=== PATIENT | female | born 1930 | race Caucasian/White ===

== ENCOUNTER 2018-02-07 09:41 | Inpatient (IN) | payer MEDICARE ==
[2018-02-07 10:56] LABS: BASO % 0.3 % (0.0-1.0); EOS # 0.2 10^3/uL (0.0-0.50); EOS % 3.5 % (0.0-3.0); HEMATOCRIT 35.3 % (36.0-47.0); IMMATURE GRANULOCYTE % 0.4 % (0-3.0); LYMPH # 1.7 10^3/uL (1.5-4.5); LYMPH % 24.7 % (24.0-44.0); MEAN CORPUSCULAR HEMOGLOBIN 30.2 pg (27.0-33.0); MEAN CORPUSCULAR HGB CONC 31.2 g/dl (32.0-36.5); MONO # 0.4 10^3/uL (0.0-0.8); MONO % 6.3 % (0.0-5.0); NEUTROPHILS # 4.5 10^3/uL (1.8-7.7); NEUTROPHILS % 64.8 % (36.0-66.0); PLATELET COUNT, AUTOMATED 224 10^3/uL (150-450); RED BLOOD COUNT 3.64 10^6/uL (4.00-5.40); RED CELL DISTRIBUTION WIDTH 15.4 % (11.5-14.5); WHITE BLOOD COUNT 6.9 10^3/uL (4.0-10.0)
[2018-02-07 11:15] LABS: INR 1.13; PROTHROMBIN TIME 14.7 SECONDS (12.4-14.5)
[2018-02-07 11:16] LABS: PARTIAL THROMBOPLASTIN TIME 38.2 SECONDS (26.8-37.9)
[2018-02-07 11:20] LABS: ANION GAP 8 MEQ/L (8-16); BLOOD UREA NITROGEN 18 MG/DL (7-18); CALCIUM LEVEL 8.8 MG/DL (8.8-10.2); CARBON DIOXIDE LEVEL 25 MEQ/L (21-32); CHLORIDE LEVEL 107 MEQ/L (98-107); CK-MB VALUE MASS 1.9 NG/ML (<3.6); CPK CREATINE PHOSPHOKINASE 56 U/L (26-192); CREATININE FOR GFR 0.96 MG/DL (0.55-1.30); GLOMERULAR FILTRATION RATE 58.5 (>32); GLUCOSE, FASTING 192 MG/DL (70-100); MB/CK RELATIVE INDEX 3.39 (< OR =4); SODIUM LEVEL 140 MEQ/L (136-145); TROPONIN I < 0.02 NG/ML (< 0.10)
[2018-02-07] MEDS: ASPIRIN 325 MG TAB PO (11:44)
[2018-02-07] MEDS ORDERED: ONDANSETRON 4 MG TAB (S0181) PO (12:30)
[2018-02-07] MEDS ORDERED: GLUCOSE 4 GM CHEW TABLET PO (12:30)
[2018-02-07] MEDS ORDERED: ONDANSETRON 4MG/2ML VIAL (J2405) IV (12:30)
[2018-02-07] MEDS ORDERED: GLUCAGON FOR INJ 1 MG VIAL (J1610) SC (12:30)
[2018-02-07] MEDS ORDERED: DEXTROSE 50% 50 ML SYRINGE IV (12:30)
[2018-02-07] MEDS ORDERED: ACETAMINOPHEN TAB 650MG DOSE (2X325MG) PO (12:30)
[2018-02-07 13:07] LABS: ESTIMATED AVERAGE GLUCOSE 154 MG/DL (60-110)
[2018-02-07 16:36] LABS: CPK CREATINE PHOSPHOKINASE 59 U/L (26-192); TROPONIN I < 0.02 NG/ML (< 0.10)
[2018-02-07 16:40] LABS: CK-MB VALUE MASS 1.8 NG/ML (<3.6); MB/CK RELATIVE INDEX 3.05 (< OR =4)
[2018-02-07] MEDS: FENOFIBRATE 145 MG TAB (TRICOR) PO (17:19)
[2018-02-07] MEDS: ENOXAPARIN 40 MG/0.4 ML SYRINGE (J1650) SC (17:20)
[2018-02-07] MEDS: HumaLOG INSULIN (NovoLOG) PER UNIT SC ×2 (17:30→21:00)
[2018-02-07 17:36] LABS: BEDSIDE GLUCOSE 103 MG/DL (83-110)
[2018-02-07] MEDS ORDERED: SLF 3 ML SYR IV (18:45)
[2018-02-07] MEDS: ATORVASTATIN 20 MG TAB PO (21:46)
[2018-02-07] MEDS: OMEPRAZOLE 20 MG CAP PO (21:46)
[2018-02-07] MEDS: SLF 3 ML SYR IV (21:47)
[2018-02-07 21:50] LABS: BEDSIDE GLUCOSE 141 MG/DL (83-110)
[2018-02-08 00:50] LABS: CK-MB VALUE MASS 1.9 NG/ML (<3.6); CPK CREATINE PHOSPHOKINASE 56 U/L (26-192); MB/CK RELATIVE INDEX 3.39 (< OR =4); TROPONIN I < 0.02 NG/ML (< 0.10)
[2018-02-08 05:51] LABS: BASO % 0.2 % (0.0-1.0); EOS # 0.3 10^3/uL (0.0-0.50); EOS % 4.9 % (0.0-3.0); HEMATOCRIT 34.4 % (36.0-47.0); HEMOGLOBIN 10.8 g/dl (12.0-15.5); IMMATURE GRANULOCYTE % 0.6 % (0-3.0); LYMPH # 2.1 10^3/uL (1.5-4.5); LYMPH % 32.5 % (24.0-44.0); MEAN CORPUSCULAR HEMOGLOBIN 30.5 pg (27.0-33.0); MEAN CORPUSCULAR HGB CONC 31.4 g/dl (32.0-36.5); MEAN CORPUSCULAR VOLUME 97.2 fl (80.0-96.0); MONO # 0.4 10^3/uL (0.0-0.8); MONO % 6.5 % (0.0-5.0); NEUTROPHILS # 3.5 10^3/uL (1.8-7.7); NEUTROPHILS % 55.3 % (36.0-66.0); PLATELET COUNT, AUTOMATED 206 10^3/uL (150-450); RED BLOOD COUNT 3.54 10^6/uL (4.00-5.40); RED CELL DISTRIBUTION WIDTH 15.2 % (11.5-14.5); WHITE BLOOD COUNT 6.3 10^3/uL (4.0-10.0)
[2018-02-08 06:12] LABS: CPK CREATINE PHOSPHOKINASE 49 U/L (26-192); TROPONIN I < 0.02 NG/ML (< 0.10)
[2018-02-08 06:13] LABS: CK-MB VALUE MASS 1.7 NG/ML (<3.6); MB/CK RELATIVE INDEX 3.46 (< OR =4)
[2018-02-08 06:21] LABS: ANION GAP 9 MEQ/L (8-16); BLOOD UREA NITROGEN 16 MG/DL (7-18); CALCIUM LEVEL 8.9 MG/DL (8.8-10.2); CARBON DIOXIDE LEVEL 24 MEQ/L (21-32); CHLORIDE LEVEL 109 MEQ/L (98-107); CHOLESTEROL LEVEL 115 MG/DL (<200); CHOLESTEROL RISK RATIO 4.791 (<5); CREATININE FOR GFR 0.93 MG/DL (0.55-1.30); GLOMERULAR FILTRATION RATE > 60.0 (>32); GLUCOSE, FASTING 128 MG/DL (70-100); HDL CHOLESTEROL 24 MG/DL (>40); LDL CHOLESTEROL 42.8 MG/DL (<100); NON-HDL-C 91 MG/DL; POTASSIUM SERUM 3.9 MEQ/L (3.5-5.1); SODIUM LEVEL 142 MEQ/L (136-145); TRIGLYCERIDES LEVEL 241 MG/DL (<150)
[2018-02-08] MEDS: SLF 3 ML SYR IV ×3 (06:29→20:30)
[2018-02-08] MEDS: LEVOTHYROXINE 88MCG TABLET (0.088 MG) PO (06:29)
[2018-02-08 08:17] LABS: BEDSIDE GLUCOSE 126 MG/DL (83-110)
[2018-02-08] MEDS: HumaLOG INSULIN (NovoLOG) PER UNIT SC ×4 (08:28→20:25)
[2018-02-08] MEDS: LEVEMIR (INSULIN DETEMIR) 1 UNITS/0.01ML SC (09:35)
[2018-02-08] MEDS: ENOXAPARIN 40 MG/0.4 ML SYRINGE (J1650) SC (09:37)
[2018-02-08] MEDS: ASPIRIN 81 MG CHEW TABLET PO (09:37)
[2018-02-08] MEDS: LOSARTAN 25 MG TAB PO (09:38)
[2018-02-08] MEDS: FENOFIBRATE 145 MG TAB (TRICOR) PO (09:38)
[2018-02-08] MEDS: CETIRIZINE (ZyrTEC) 10 MG TAB PO (09:38)
[2018-02-08 12:38] LABS: BEDSIDE GLUCOSE 117 MG/DL (83-110)
[2018-02-08 17:09] LABS: BEDSIDE GLUCOSE 153 MG/DL (83-110)
[2018-02-08 20:20] LABS: BEDSIDE GLUCOSE 174 MG/DL (83-110)
[2018-02-08] MEDS: OMEPRAZOLE 20 MG CAP PO (20:29)
[2018-02-08] MEDS: ATORVASTATIN 20 MG TAB PO (20:29)
[2018-02-09 05:35] LABS: BASO % 0.3 % (0.0-1.0); EOS # 0.3 10^3/uL (0.0-0.50); HEMATOCRIT 35.9 % (36.0-47.0); HEMOGLOBIN 11.3 g/dl (12.0-15.5); IMMATURE GRANULOCYTE % 0.6 % (0-3.0); LYMPH % 31.4 % (24.0-44.0); MEAN CORPUSCULAR HEMOGLOBIN 30.7 pg (27.0-33.0); MEAN CORPUSCULAR HGB CONC 31.5 g/dl (32.0-36.5); MEAN CORPUSCULAR VOLUME 97.6 fl (80.0-96.0); MONO # 0.4 10^3/uL (0.0-0.8); MONO % 6.3 % (0.0-5.0); NEUTROPHILS # 3.6 10^3/uL (1.8-7.7); NEUTROPHILS % 56.4 % (36.0-66.0); PLATELET COUNT, AUTOMATED 207 10^3/uL (150-450); RED BLOOD COUNT 3.68 10^6/uL (4.00-5.40); RED CELL DISTRIBUTION WIDTH 15.2 % (11.5-14.5); WHITE BLOOD COUNT 6.4 10^3/uL (4.0-10.0)
[2018-02-09 05:49] LABS: ANION GAP 5 MEQ/L (8-16); BLOOD UREA NITROGEN 19 MG/DL (7-18); CALCIUM LEVEL 8.8 MG/DL (8.8-10.2); CARBON DIOXIDE LEVEL 26 MEQ/L (21-32); CHLORIDE LEVEL 109 MEQ/L (98-107); CREATININE FOR GFR 0.84 MG/DL (0.55-1.30); GLOMERULAR FILTRATION RATE > 60.0 (>32); GLUCOSE, FASTING 133 MG/DL (70-100); MAGNESIUM LEVEL 2.1 MG/DL (1.8-2.4); SODIUM LEVEL 140 MEQ/L (136-145)
[2018-02-09] MEDS: SLF 3 ML SYR IV (06:24)
[2018-02-09] MEDS: LEVOTHYROXINE 88MCG TABLET (0.088 MG) PO (06:24)
[2018-02-09 08:23] LABS: BEDSIDE GLUCOSE 155 MG/DL (83-110)
[2018-02-09] MEDS: ENOXAPARIN 40 MG/0.4 ML SYRINGE (J1650) SC (08:30)
[2018-02-09] MEDS: ASPIRIN 81 MG CHEW TABLET PO (08:31)
[2018-02-09] MEDS: HumaLOG INSULIN (NovoLOG) PER UNIT SC (08:31)
[2018-02-09] MEDS: LEVEMIR (INSULIN DETEMIR) 1 UNITS/0.01ML SC (08:31)
[2018-02-09] MEDS: FENOFIBRATE 145 MG TAB (TRICOR) PO (08:32)
[2018-02-09] MEDS: CETIRIZINE (ZyrTEC) 10 MG TAB PO (08:32)
[2018-02-09] MEDS: LOSARTAN 25 MG TAB PO (08:32)
== END 2018-02-09 11:00 | disposition home or self-care (01) | DRG 69 ==
LOC: M ED 09:41 → M ED INP 12:22 → M PCU 15:01
DX: G45.9 Transient cerebral ischemic attack, unspecified (principal); R47.01 Aphasia; I10 Essential (primary) hypertension; E11.9 Type 2 diabetes mellitus without complications; Z66 Do not resuscitate; E78.5 Hyperlipidemia, unspecified; E03.9 Hypothyroidism, unspecified; Z85.038 Personal history of other malignant neoplasm of large intestine; Z90.49 Acquired absence of other specified parts of digestive tract; Z98.49 Cataract extraction status, unspecified eye; Z91.018 Allergy to other foods; Z88.0 Allergy status to penicillin; Z79.4 Long term (current) use of insulin

== ENCOUNTER 2019-05-15 17:17 | Inpatient (IN) | payer MEDICARE ==
[~2019-05-15] VITALS: Ht 160 cm; Wt 72.5 kg
[~2019-05-15 17:17] MED LIST: ASPI-286 PO; ATOR1TAB21 PO; FENO160T10 PO; LEVO88TA3 PO; LOSA25TA14 PO; METF10004 PO; OMEP40CA2 PO; PRAV40TA2 PO; TOUJ1.2I SC; ZYRT10CA PO
[2019-05-15] MEDS ORDERED: ACET25TA12 PO (18:18)
--- NOTE | 2019-05-15 18:19 | REPVR ---
EXAM: CT Head Without Contrast EXAM DATE/TIME: 05/15/2019 5:46 PM CLINICAL HISTORY: 89 years old, female; Altered mental status/memory loss; Additional info: AMS TECHNIQUE: Imaging protocol: Computed tomography images of the head without contrast. Radiation optimization: All CT scans at this facility use at least one of these dose optimization techniques: automated exposure control; mA and/or kV adjustment per patient size (includes targeted exams where dose is matched to clinical indication); or iterative reconstruction. COMPARISON: CT Head without contrast 02/07/2018 10:52 AM FINDINGS: Brain: Global cerebral atrophy is consistent with patient's age. Decreased attenuation within the white matter tracts of both cerebral hemispheres is nonspecific but typically seen with small vessel disease/chronic white matter ischemic changes of aging. No intracranial hemorrhage or mass effect. No acute stroke. Ventricles: Unremarkable. No ventriculomegaly. Bones/joints: Unremarkable. No acute fracture. Sinuses: Visualized sinuses are unremarkable. No fluid levels. Mastoid air cells: Visualized mastoid air cells are well aerated. No mastoid effusion. Soft tissues: Unremarkable. IMPRESSION: No acute abnormality. Electronically signed by: Lito Hernández On 05/15/2019 18:19:01 PM
[2019-05-15 18:31] LABS: BASO % 0.4 % (0.0-1.0); EOS # 0.3 10^3/uL (0.0-0.50); EOS % 3.6 % (0.0-3.0); HEMATOCRIT 34.6 % (36.0-47.0); LYMPH # 1.9 10^3/uL (1.5-4.5); LYMPH % 22.7 % (24.0-44.0); MEAN CORPUSCULAR HEMOGLOBIN 31.9 pg (27.0-33.0); MEAN CORPUSCULAR HGB CONC 31.8 g/dl (32.0-36.5); MEAN CORPUSCULAR VOLUME 100.3 fl (80.0-96.0); MONO # 0.5 10^3/uL (0.0-0.8); MONO % 5.5 % (0.0-5.0); NEUTROPHILS # 5.6 10^3/uL (1.8-7.7); NEUTROPHILS % 67.1 % (36.0-66.0); PLATELET COUNT, AUTOMATED 242 10^3/uL (150-450); RED BLOOD COUNT 3.45 10^6/uL (4.00-5.40); WHITE BLOOD COUNT 8.3 10^3/uL (4.0-10.0)
[2019-05-15 18:57] LABS: ACETAMINOPHEN LEVEL < 2.0 UG/ML (10.0-30.0); ALBUMIN 4.1 GM/DL (3.2-5.2); ALT/SGPT 33 U/L (12-78); BILIRUBIN,DIRECT 0.2 MG/DL (0.0-0.2); BILIRUBIN,TOTAL 0.4 MG/DL (0.2-1.0); BLOOD UREA NITROGEN 13 MG/DL (7-18); CALCIUM LEVEL 9.1 MG/DL (8.8-10.2); CARBON DIOXIDE LEVEL 25 MEQ/L (21-32); CHLORIDE LEVEL 102 MEQ/L (98-107); CK-MB VALUE MASS 3.7 NG/ML (<3.6); CPK CREATINE PHOSPHOKINASE 75 U/L (26-192); ETHYL ALCOHOL (ETHANOL) < 0.003 % (0.000-0.010); GLOMERULAR FILTRATION RATE > 60.0 (>32); GLUCOSE, FASTING 139 MG/DL (70-100); MB/CK RELATIVE INDEX 4.93 (< OR =4); POTASSIUM SERUM 4.1 MEQ/L (3.5-5.1); SALICYLATE LEVEL < 1.7 MG/DL (5.0-30.0); SODIUM LEVEL 135 MEQ/L (136-145); TOTAL PROTEIN 7.6 GM/DL (6.4-8.2); TROPONIN I < 0.02 NG/ML (< 0.10)
[2019-05-15] MEDS ORDERED: ACETAMINOPHEN TAB 650MG DOSE (2X325MG) PO ONE (19:45)
[2019-05-15 20:00] LABS: AMPHETAMINES LEVEL URINE NEGATIVE (NEGATIVE); BARBITURATES URINE NEGATIVE (NEGATIVE); BENZODIAZEPINES URINE NEGATIVE (NEGATIVE); CANNABINOIDS URINE NEGATIVE (NEGATIVE); COCAINE METABOLITE URINE NEGATIVE (NEGATIVE); METHADONE URINE NEGATIVE (NEGATIVE); OPIATES URINE NEGATIVE (NEGATIVE); PHENCYCLIDINE URINE NEGATIVE (NEGATIVE)
--- NOTE | 2019-05-15 20:08 | ECGEPIP ---
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
[2019-05-15] MEDS ORDERED: ATOR40TA75 PO (20:29)
[2019-05-15] MEDS ORDERED: ALL10TAB28 PO (20:29)
[2019-05-15] MEDS ORDERED: ASPI81TA85 PO (20:29)
[2019-05-15] MEDS ORDERED: PATIENT COMMENTS (20:31)
[2019-05-15] MEDS ORDERED: LEVO100T5 PO (20:32)
[2019-05-15] MEDS ORDERED: NS 1,000 ML IV SCH (20:45)
--- NOTE | 2019-05-15 21:01 | HPEPDOC ---
[facility] Medical History & Physical Date of Admission May 15, 2019 Date of Service: May 15, 2019 Primary Care Physician: A Attending Physician: ALDO CARR MD History and Physical Time of service 9:20 PM CHIEF COMPLAINT: Abnormal speech HISTORY OF PRESENT ILLNESS: Miss by mouth as is a 89-year-old female who was brought to the ED by her daughter after having an episode of difficulty speaking, and confusion that occurred at around noon today while she is getting her ears checked. Per discussion with the ED attending, by the time the patient arrived and was evaluated, chart was around 6 PM her symptoms had completely resolved. Currently the patient denies having any acute complaints, and is asking when she can go to her room. About 3 weeks ago. The patient had a fall 3 weeks ago, was evaluated at a hospital in [place] and was sent home. Per chart review, the patient had similar symptoms in February 2018, was admitted for TIA, and had a complete neurological workup which was unremarkable. REVIEW OF SYSTEMS: 12 point review of systems negative except as listed in HPI PAST MEDICAL / SURGICAL HISTORY: Chronic Hypertension. TIA Diabetes mellitus type 2 Hypothyroidism Colon cancer status post resection partial colectomy, cataract surgery SOCIAL HISTORY: Currently lives in [facility] - Tobacco -Alcohol FAMILY HISTORY: Diabetes mellitus Coronary artery disease ALLERGIES: Please see below. HOME MEDICATIONS: Please see below. PHYSICAL EXAMINATION: VITAL SIGNS: Heart rate 103, blood pressure 172/68, pulse oximetry 93% on room air GENERAL APPEARANCE: Well-nourished, well-developed, no apparent distress HEENT:. Normocephalic, atraumatic, mucous members moist and pink. CARDIOVASCULAR: Regular rate and rhythm, no murmurs, rubs or gallops, radial pulses intact LUNGS: Good auscultation bilaterally on room air. ABDOMEN:. Bowel sounds hypoactive. Abdomen soft and nontender on palpation. MUSCULOSKELETAL: Range of motion intact 4 extremities, EXTREMITIES: No bilateral lower extremity edema NEUROLOGICAL: CN II to 12 intact, speech not dysarthric, strength 5 out of 5 in both upper and lower extremities PSYCHIATRIC: Alert and oriented person, place and time, able to understand and follow commands LABORATORY DATA: See below. CBC was unremarkable except for a hemoglobin of 11.0 with MCV of 103. Chemistry was unremarkable except for a sodium 135, and glucose of 139 IMAGING: CT of the head was negative for any acute abnormalities MICROBIOLOGY: Please see below. ASSESSMENT: Mrs. Parker is an 89-year-old female with a past medical history of chronic hypertension, hypothyroidism, TIAs, and type 2 diabetes will be admitted for evaluation of TIA like symptoms. PLAN: 1. Stroke/TIA -symptoms have resolved -last in patient admission in February of 2018 was for TIA w aphasia / the work up was unremarkable -TSH wnl -NIHHS Score to quantify stroke severity per ED Attending was 2 on admission is now 1 -ABCD2 Score for risk of CVA after TIA = 5 points = mod risk ( Hospital admission is recommended for all patients with TIAs who have an ABCD2 score of 3 or greater to expedite diagnostic testing and stroke subtyping; admission is also recommended for patients with a score of 0 to 2 if rapid outpatient evaluation cannot be performed.) Plan: admit to tele / f/u lipid panel for ACVD risk score, MRI brain, carotid US, Echo / NPO pending swallow evaluation / PT/OT consult / start ASA & statin after swallow eval / f/u w Neuro in the morning to determine if pt should get ASA + Plavix for 21 days followed by Plavix mono-therapy for 90 days to reduce the risk of subsequent stroke bc the score is >4 / if telemetry unremarkabley may consider Cardio referal for an event monitor to diagnose paroxysmal A.fib 2. Chronic Hypertension Plan: Continue home meds 3. Diabetes mellitus type 2 Plan: Follow-up Accu-Cheks, follow-up A1c, hold metformin, sliding scale insulin 4. Hypothyroidism Plan: Resume Synthroid in the morning DISPO: pending clinical course back to [facility] DVT Px w SCDs today, can switch to lovenox tommorow pending MRI results Vital Signs Vital Signs Date Time Temp Pulse Resp B/P (MAP) Pulse Ox O2 Delivery O2 Flow Rate FiO2 05/15/19 18:27 94 18 148/62 (90) 98 Room Air Laboratory Data Labs 24H Laboratory Tests 2 05/15/19 18:04: Immature Granulocyte % (Auto) 0.7, White Blood Count 8.3, Red Blood Count 3.45L, Hemoglobin 11.0L, Hematocrit 34.6L, Mean Corpuscular Volume 100.3H, Mean Corpuscular Hemoglobin 31.9, Mean Corpuscular Hemoglobin Concent 31.8L, Red Cell Distribution Width 14.1, Platelet Count 242, Neutrophils (%) (Auto) 67.1H, Lymphocytes (%) (Auto) 22.7L, Monocytes (%) (Auto) 5.5H, Eosinophils (%) (Auto) 3.6H, Basophils (%) (Auto) 0.4, Neutrophils # (Auto) 5.6, Lymphocytes # (Auto) 1.9, Monocytes # (Auto) 0.5, Eosinophils # (Auto) 0.3, Basophils # (Auto) 0.0, Nucleated Red Blood Cells % (auto) 0.0, Anion Gap 8, Glomerular Filtration Rate > 60.0, Calcium Level 9.1, Aspartate Amino Transf (AST/SGOT) 34, Alanine Aminotransferase (ALT/SGPT) 33, Alkaline Phosphatase 99, Total Bilirubin 0.4, Direct Bilirubin 0.2, Ammonia 29, Total Creatine Kinase 75, Creatine Kinase MB 3.7H, Creatine Kinase MB Relative Index 4.93H, Troponin I < 0.02, Total Protein 7.6, Albumin 4.1, Albumin/Globulin Ratio 1.17, Thyroid Stimulating Hormone (TSH) 2.600, Salicylates Level < 1.7L, Acetaminophen Level < 2.0L, Ethyl Alcohol Level < 0.003 05/15/19 18:15: Bedside Glucose (Misc Panel) 135H 05/15/19 19:20: Urine Amphetamines Screen NEGATIVE, Urine Benzodiazepines Screen NEGATIVE, Urine Opiates Screen NEGATIVE, Urine Methadone Screen NEGATIVE, Urine Barbiturates Screen NEGATIVE, Urine Phencyclidine Screen NEGATIVE, Urine Cocaine Metabolite Screen NEGATIVE, Urine Cannabinoids Screen NEGATIVE CBC/BMP Laboratory Tests 05/15/19 18:04 Red Blood Count 3.45 L, Mean Corpuscular Volume 100.3 H, Mean Corpuscular Hemoglobin 31.9, Mean Corpuscular Hemoglobin Concent 31.8 L, Red Cell Distribution Width 14.1, Neutrophils (%) (Auto) 67.1 H, Lymphocytes (%) (Auto) 22.7 L, Monocytes (%) (Auto) 5.5 H, Eosinophils (%) (Auto) 3.6 H, Basophils (%) (Auto) 0.4, Neutrophils # (Auto) 5.6, Lymphocytes # (Auto) 1.9, Monocytes # (Auto) 0.5, Eosinophils # (Auto) 0.3, Basophils # (Auto) 0.0 Home Medications Scheduled Acetaminophen/Diphenhydramine (Acetaminophen Pm Caplet) 1 Each Tablet, 1 TAB PO BID Aspirin (Aspir 81) 81 Mg Tablet.dr, 81 MG PO DAILY Atorvastatin Calcium (Atorvastatin Calcium) 40 Mg Tablet, 40 MG PO QPM LAST TAKEN EARLY AFTERNOON Cetirizine HCl (Cetirizine HCl) 10 Mg Tablet, 10 MG PO DAILY Fenofibrate (Fenofibrate) 160 Mg Tab, 160 MG PO DAILY 1500 Insulin Glargine,Hum.rec.anlog (Toujeo Solostar) 300 Unit/Ml Inj, 45 UNIT SC DAILY Levothyroxine Sodium (Levothyroxine Sodium) 100 Mcg Tablet, 100 MCG PO DAILY Losartan Potassium (Losartan Potassium) 25 Mg Tab, 25 MG PO DAILY Metformin HCl (Metformin HCl) 1,000 Mg Tab, 1,000 MG PO BID Omeprazole (Omeprazole) 40 Mg Cap, 40 MG PO QPM Miscellaneous Medications [Patient Comments] PATIENT GETS HER MEDS PREPACKED IN THE MAIL. SHE IS UNSURE TO WHAT SHE HAS TAKEN TODAY Allergies Coded Allergies: Penicillins (Verified Allergy, Severe, swelling, 05/15/19) Cantaloupe (Verified Allergy, Unknown, 02/07/18) A-FIB/CHADSVASC A-FIB History Current/History of A-Fib/PAF?: No Current PO Anticoag Therapy: No ALDO CARR MD May 15, 2019 21:01
[2019-05-15 22:27] LABS: CHOLESTEROL LEVEL 99 MG/DL (<200); CHOLESTEROL RISK RATIO 2.605 (<5); HDL CHOLESTEROL 38 MG/DL (>40); LDL CHOLESTEROL 29 MG/DL (<100); NON-HDL-C 61 MG/DL; TRIGLYCERIDES LEVEL 161 MG/DL (<150)
--- NOTE | 2019-05-15 22:28 | REPVR ---
EXAM: US Duplex Bilateral Extracranial Arteries EXAM DATE/TIME: 05/15/2019 9:15 PM CLINICAL HISTORY: 89 years old, female; Speech disturbance; Dysphasia; Additional info: TIA, date was changed to 05/15/2019 , nurse spoke w/ doctor TECHNIQUE: Imaging protocol: Real-time Duplex ultrasound scan of the Bilateral carotid and vertebral arteries combining yanez scale, color Doppler and spectral waveform analysis. COMPARISON: CT Head without contrast 05/15/2019 5:34 PM FINDINGS: Right common carotid artery: Right CCA PSV 90.1 cm/s. Right internal carotid artery: Calcified plaque within the right carotid bulb and proximal right ICA. Right ICA PSV 103.0 cm/s. Right ICA/CCA ratio: Right ICA/CCA ratio 1.14. Right external carotid artery: No stenosis in the origin. Right vertebral artery: Unremarkable. Antegrade flow Left common carotid artery: Left CCA PSV 84.0 cm/s. Left internal carotid artery: Calcified and soft plaque within the left carotid bulb and proximal left ICA. The extent of plaque within the left carotid bulb and proximal ICA appears to have increased significantly compared to the prior carotid ultrasound performed on 02/07/2018. Left ICA PSV 74.7 cm/s. Left ICA/CCA ratio: Left ICA/CCA ratio 0.89. Left external carotid artery: Stenosis at the origin is present. Left vertebral artery: Unremarkable. Antegrade flow. IMPRESSION: 1. Mild right ICA stenosis. 2. Although the left ICA stenosis is estimated to be less than 50% based on peak systolic velocity, there is extensive soft and calcified plaque at the origin of the left internal carotid artery. The amount of plaque has visibly increased since the prior examination. Further evaluation with CT angiography is suggested as clinically indicated. COMMENT: Carotid Stenosis Reference using SRU criteria: Mild: less than 50% stenosis. ICA PSV is less than 125 cm/second and plaque or intimal thickening is visible. Moderate: 50-69% stenosis. ICA PSV is 125 to 230 cm/second and plaque is visible. Severe: 70-94% stenosis. ICA PSV is more than 230 cm/second and visible plaque and lumen narrowing are seen. Near occlusion: 95-99% stenosis. ICA PSV is variable and significant plaque and luminal narrowing are seen. Occluded: 100% stenosis. No flow identified. Electronically signed by: Lito Hernández On 05/15/2019 22:28:32 PM
[2019-05-15] MEDS ORDERED: GLUCOSE 4 GM CHEW TABLET PO PRN (22:30)
[2019-05-16 01:00] VITALS: BP 165/88
[2019-05-16] MEDS ORDERED: IBUPROFEN 600 MG TAB PO ONE (01:45)
[2019-05-16 04:00] VITALS: BP 142/63
[2019-05-16] MEDS: LEVOTHYROXINE 100MCG TABLET (0.1MG) PO SCH (05:22)
[2019-05-16 05:45] LABS: HEMATOCRIT 33.1 % (36.0-47.0); HEMOGLOBIN 10.5 g/dl (12.0-15.5); MEAN CORPUSCULAR HEMOGLOBIN 31.2 pg (27.0-33.0); MEAN CORPUSCULAR HGB CONC 31.7 g/dl (32.0-36.5); MEAN CORPUSCULAR VOLUME 98.2 fl (80.0-96.0); PLATELET COUNT, AUTOMATED 218 10^3/uL (150-450); RED BLOOD COUNT 3.37 10^6/uL (4.00-5.40); WHITE BLOOD COUNT 8.4 10^3/uL (4.0-10.0)
[2019-05-16 06:02] LABS: HEMOGLOBIN A1c 7.7 %
[2019-05-16 06:12] LABS: BLOOD UREA NITROGEN 10 MG/DL (7-18); CALCIUM LEVEL 8.2 MG/DL (8.8-10.2); CARBON DIOXIDE LEVEL 24 MEQ/L (21-32); CHLORIDE LEVEL 105 MEQ/L (98-107); CREATININE FOR GFR 0.78 MG/DL (0.55-1.30); GLOMERULAR FILTRATION RATE > 60.0 (>32); GLUCOSE, FASTING 107 MG/DL (70-100); POTASSIUM SERUM 3.9 MEQ/L (3.5-5.1); SODIUM LEVEL 136 MEQ/L (136-145)
[2019-05-16] MEDS: HumaLOG INSULIN (NovoLOG) PER UNIT SC SCH ×3 (07:30→17:02)
--- NOTE | 2019-05-16 07:44 | REP ---
CHEST, TWO VIEWS: Two views of the chest are performed. Comparison 02/07/2018. There is mild elevation of the right hemidiaphragm with mild right base fibroatelectatic change. No acute infiltrate or pulmonary edema is seen. The heart is normal in size. There is calcification of the thoracic aorta. The mediastinal silhouette is unremarkable and unchanged. There are mild degenerative changes of the spine. IMPRESSION: No acute infiltrate. Electronically Signed by Ethan Valladares MD 05/17/2019 12:20 A
[2019-05-16 08:00] VITALS: BP 147/69
[2019-05-16] MEDS ORDERED: ISOVUE-370 76% 100ML VIAL (Q9967) As Ordered ONE (09:53)
[2019-05-16] MEDS: LOSARTAN 25 MG TAB PO SCH (10:26)
[2019-05-16] MEDS: CETIRIZINE (ZyrTEC) 10 MG TAB PO SCH (10:26)
[2019-05-16] MEDS: ASPIRIN 81 MG ENTERIC TAB PO SCH (10:26)
--- NOTE | 2019-05-16 11:22 | REP ---
CT ANGIO NECK: HISTORY: Carotid stenosis. CONTRAST: Isovue 370, 75 mL. Calcified atherosclerotic plaque is present at the origin of the right internal carotid artery. There is severe stenosis of 80% of the right internal carotid artery at its origin. The origin of the right external carotid artery is normal. Calcified atherosclerotic plaques are present at the origins of the left external and internal carotid arteries. There is severe stenosis of 70% of the left internal carotid artery at its origin. There is mild stenosis of 30% of the left external carotid artery at its origin. Calcified atherosclerotic plaques are present in the cavernous internal carotid arteries and supraclinoid right internal carotid artery. These produce at least mild stenosis. Calcified atherosclerotic plaque is present at the origin of the left subclavian artery. There is no significant stenosis. The vertebral arteries are equal in size and patent. IMPRESSION: 1. Severe stenosis of 80% of the right internal carotid artery at its origin. 2. Severe stenosis of 70% of the left internal carotid artery at its origin. Electronically Signed by Jp Flores MD 05/16/2019 12:47 P
[2019-05-16 12:00] VITALS: BP 145/71
--- NOTE | 2019-05-16 14:48 | CR.PDOC ---
General Date of Consultation: May 16, [address] Rosenbaum HPI: 89 year old F admitted with TIA symptoms 05/15/19, found to have carotid stenosis, vascular surgery is consulted. History is taken from the patient and 2 of her daughters. They report that she moved from [place] 2 months ago and has been living at [facility]. 04/24/2019 she was hospitalized in [place] with a fall and loss of consciousness. The patient states testing at that time was unremarkable and the patient was discharged. She has resolving ecchymosis on the left side of her face and head contusion of the left shoulder. According to the patient and her family yesterday at about 2 PM she had difficulty finding words, confusion, and dysarthria. She came to the emergency department for evaluation. Her daughter states this lasted for several hours and today she seems to be back to her baseline. The patient denies amaurosis, visual disturbances, weakness, numbness, or tingling in upper or lower extremities. Currently she is sitting on the side of the bed and having lunch. She states she has been more off balance recently and has been using a cane to assist her with ambulation. Denies any fevers, chills, Headache, Chest Pain, Shortness of breath, cough, palpitations, abdominal pain, N/V/D or changes in bowel or bladder habits. PAST MEDICAL / SURGICAL HISTORY: Hypertension Diabetes mellitus type 2 Dyslipidemia GERD Hypothyroidism Colon cancer status post resection partial colectomy, cataract surgery SOCIAL HISTORY: Denies Tobacco Denies Alcohol FAMILY HISTORY: Mother during childbirth Father related to Coronary artery disease ROS: As noted in HPI, otherwise 11pt ROS of systems reviewed and unremarkable. PE: GEN: 89 yo F, appears stated age. Well-nourished, well developed. No acute distress. Alert and oriented x 3. HEENT: Ecchymosis is noted around the left eye. This appears to be resolving. Sclera are nonicteric. Conjunctiva without injection. No facial asymmetry. Moist mucous membranes. CHEST: Regular rate and rhythm, +S1, +S2. LUNGS: Clear to auscultation bilaterally. No wheezes, rales, or rhonchi. ABD: Round, soft, non-tender, non-distended. EXT: No lower extremity edema appreciated. SKIN: [place], dry, warm. Good capillary refill. No rashes. NEURO: Alert and oriented x 3. Cranial nerves III-XII are intact. No focal deficits appreciated at this time. Patient is providing accurate history. Speech is clear. CT head No acute abnormality Carotid ultrasound COMMENT: Carotid Stenosis Reference using SRU criteria: Mild: less than 50% stenosis. ICA PSV is less than 125 cm/second and plaque or intimal thickening is visible. Moderate: 50-69% stenosis. ICA PSV is 125 to 230 cm/second and plaque is visible. Severe: 70-94% stenosis. ICA PSV is more than 230 cm/second and visible plaque and lumen narrowing are seen. Near occlusion: 95-99% stenosis. ICA PSV is variable and significant plaque and luminal narrowing are seen. Occluded: 100% stenosis. No flow identified. Electronically signed by: Lito Hernández On 05/15/2019 22:28:32 PM CTA neck 1. Severe stenosis of 80% of the right internal carotid artery at its origin. 2. Severe stenosis of 70% of the left internal carotid artery at its origin. Electronically Signed by Jp Flores MD 05/16/2019 12:47 P MRI brain. Pending A&P: 1. Carotid stenosis. The patient was noted to have confusion and dysarthria consistent with TIA symptoms on admission. The patient also reports an episode of fall and loss of consciousness in [place] 04/24/19. CTA neck indicates 80% right ICA stenosis, 70% left ICA stenosis. MRI brain pending. Continue aspirin 81 mg daily. Add Plavix 75 mg daily. Continue statin. The patient is reviewed by Dr. Rosenbaum. Tentative plan for right CEA Tuesday05/18/19 pending medical clearance. This is reviewed with the patient and her daughters. The procedure, risks, and benefits have been discussed. Dr. Rosenbaum will discuss further with the patient and her family. Vital Signs/I&O Vital Signs Date Time Temp Pulse Resp B/P (MAP) Pulse Ox O2 Delivery O2 Flow Rate FiO2 05/16/19 12:00 97.8 79 18 145/71 (95) 94 05/16/19 00:36 Room Air I&O- Last 24 Hours up to 6 AM 05/16/19 05:59 Intake Total 160 ml Balance 160 ml Laboratory Data Labs 24H Laboratory Tests 2 05/15/19 18:04: Immature Granulocyte % (Auto) 0.7, White Blood Count 8.3, Red Blood Count 3.45L, Hemoglobin 11.0L, Hematocrit 34.6L, Mean Corpuscular Volume 100.3H, Mean Corpuscular Hemoglobin 31.9, Mean Corpuscular Hemoglobin Concent 31.8L, Red Cell Distribution Width 14.1, Platelet Count 242, Neutrophils (%) (Auto) 67.1H, Lymphocytes (%) (Auto) 22.7L, Monocytes (%) (Auto) 5.5H, Eosinophils (%) (Auto) 3.6H, Basophils (%) (Auto) 0.4, Neutrophils # (Auto) 5.6, Lymphocytes # (Auto) 1.9, Monocytes # (Auto) 0.5, Eosinophils # (Auto) 0.3, Basophils # (Auto) 0.0, Nucleated Red Blood Cells % (auto) 0.0, Anion Gap 8, Glomerular Filtration Rate > 60.0, Calcium Level 9.1, Aspartate Amino Transf (AST/SGOT) 34, Alanine Aminotransferase (ALT/SGPT) 33, Alkaline Phosphatase 99, Total Bilirubin 0.4, Direct Bilirubin 0.2, Ammonia 29, Total Creatine Kinase 75, Creatine Kinase MB 3.7H, Creatine Kinase MB Relative Index 4.93H, Troponin I < 0.02, Total Protein 7.6, Albumin 4.1, Albumin/Globulin Ratio 1.17, Triglycerides Level 161H, Total Cholesterol 99, LDL Cholesterol 29, Non-HDL Cholesterol (LDL + VLDL) 61, Total HDL Cholesterol 38L, Cholesterol/HDL Ratio 2.605, Thyroid Stimulating Hormone (TSH) 2.600, Salicylates Level < 1.7L, Acetaminophen Level < 2.0L, Ethyl Alcohol Level < 0.003 05/15/19 18:15: Bedside Glucose (Misc Panel) 135H 05/15/19 19:20: Urine Color STRAW, Urine Appearance CLEAR, Urine pH 8.0, Urine Specific [place] 1.009, Urine Protein NEGATIVE, Urine Glucose (UA) NEGATIVE, Urine Ketones NEGATIVE, Urine Blood NEGATIVE, Urine Nitrite NEGATIVE, Urine Bilirubin NEGATIVE, Urine Urobilinogen 0.2, Urine Leukocyte Esterase 1+H, Urine WBC (Auto) 30H, Urine RBC (Auto) 1, Urine Hyaline Casts (Auto) 0, Urine Bacteria (Auto) NEGATIVE, Urine Squamous Epithelial Cells 0, Urine Transitional Epithelial Cells 1, Urine Sperm (Auto) , Urine Amphetamines Screen NEGATIVE, Urine Benzodiazepines Screen NEGATIVE, Urine Opiates Screen NEGATIVE, Urine Methadone Screen NEGATIVE, Urine Barbiturates Screen NEGATIVE, Urine Phencyclidine Screen NEGATIVE, Urine Cocaine Metabolite Screen NEGATIVE, Urine Cannabinoids Screen NEGATIVE 05/16/19 05:29: Nucleated Red Blood Cells % (auto) 0.0, Anion Gap 7L, Glomerular Filtration Rate > 60.0, Calcium Level 8.2L, Estimated Mean Plasma Glucose 174H, Hemoglobin A1c 7.7, Blood Urea Nitrogen 10, Creatinine 0.78, Sodium Level 136, Potassium Level 3.9, Chloride Level 105, Carbon Dioxide Level 24 05/16/19 11:59: Bedside Glucose (Misc Panel) 110 CBC/BMP Laboratory Tests 05/15/19 18:04 Red Blood Count 3.45 L, Mean Corpuscular Volume 100.3 H, Mean Corpuscular Hemoglobin 31.9, Mean Corpuscular Hemoglobin Concent 31.8 L, Red Cell Distribution Width 14.1, Neutrophils (%) (Auto) 67.1 H, Lymphocytes (%) (Auto) 22.7 L, Monocytes (%) (Auto) 5.5 H, Eosinophils (%) (Auto) 3.6 H, Basophils (%) (Auto) 0.4, Neutrophils # (Auto) 5.6, Lymphocytes # (Auto) 1.9, Monocytes # (Auto) 0.5, Eosinophils # (Auto) 0.3, Basophils # (Auto) 0.0 05/16/19 05:29 Red Blood Count 3.37 L, Mean Corpuscular Volume 98.2 H, Mean Corpuscular Hemoglobin 31.2, Mean Corpuscular Hemoglobin Concent 31.7 L, Red Cell Distribution Width 14.1, Calcium Level 8.2 L Microbiology Microbiology 05/15/19 Urine Culture, Received Pending Allergies Coded Allergies: Penicillins (Verified Allergy, Severe, swelling, 05/15/19) Cantaloupe (Verified Allergy, Unknown, 02/07/18) Home Medications Scheduled Acetaminophen/Diphenhydramine (Acetaminophen Pm Caplet) 1 Each Tablet, 1 TAB PO BID, (Reported) Aspirin (Aspir 81) 81 Mg Tablet.dr, 81 MG PO DAILY, (Reported) Atorvastatin Calcium (Atorvastatin Calcium) 40 Mg Tablet, 40 MG PO QPM, (Reported) LAST TAKEN EARLY AFTERNOON Cetirizine HCl (Cetirizine HCl) 10 Mg Tablet, 10 MG PO DAILY, (Reported) Fenofibrate (Fenofibrate) 160 Mg Tab, 160 MG PO DAILY, (Reported) 1500 Insulin Glargine,Hum.rec.anlog (Toujeo Solostar) 300 Unit/Ml Inj, 45 UNIT SC DAILY, (Reported) Levothyroxine Sodium (Levothyroxine Sodium) 100 Mcg Tablet, 100 MCG PO DAILY, (Reported) Losartan Potassium (Losartan Potassium) 25 Mg Tab, 25 MG PO DAILY, (Reported) Metformin HCl (Metformin HCl) 1,000 Mg Tab, 1,000 MG PO BID, (Reported) Omeprazole (Omeprazole) 40 Mg Cap, 40 MG PO QPM, (Reported) Miscellaneous Medications [Patient Comments] , (Reported) PATIENT GETS HER MEDS PREPACKED IN THE MAIL. SHE IS UNSURE TO WHAT SHE HAS TAKEN TODAY Jojo Guillory May 16, 2019 14:48
--- NOTE | 2019-05-16 15:03 | IPNPDOC ---
Subjective Date Seen The patient was seen on 05/16/19. Subjective Chief Complaint/HPI Patient seen and examined at the bedside. Denies any acute neurological complaints. States that she did not have any confusion or neurological issues yesterday. States that she was flustered after being told that her hearing was getting worse by the equipment application specialist. Otherwise, denies any other acute complaints. Objective Physical Examination General Exam: Positive: Alert, Cooperative, No Acute Distress Eye Exam: Positive: PERRLA, Conjunctiva & lids normal, EOMI; Negative: Sclera icteric ENT Exam: Positive: Atraumatic, Mucous membr. moist/pink Neck Exam: Negative: JVD Chest Exam: Positive: Clear to auscultation, Normal air movement Heart Exam: Positive: Rate Normal, Normal S1, Normal S2 Abdomen Exam: Positive: Soft; Negative: Tenderness Extremity Exam: Negative: Tenderness, Swelling Psych Exam: Positive: Oriented x 3 Assessment /Plan Plan/VTE VTE Prophylaxis Ordered?: Yes Plan Possible TIA vs Episode of Confusion Symptoms resolved prior to coming to the ER However, work up notable for 80% stenosis of ANASTASIA and 70% on LICA on CTA Neck MRI Brain pending Cont ASA, Statin for now Vascular surgery consulted-->Will tentatively schedule the patient for CEA on 05/18 Chronic Hypertension Continue home meds Diabetes mellitus type 2 Cont ISS Hypothyroidism Resume Synthroid DVT Prophylaxis Heparin SC VS, I&O, 24H, Fishbone Vital Signs/I&O Vital Signs Date Time Temp Pulse Resp B/P (MAP) Pulse Ox O2 Delivery O2 Flow Rate FiO2 05/16/19 12:00 97.8 79 18 145/71 (95) 94 05/16/19 00:36 Room Air I&O- Last 24 Hours up to 6 AM 05/16/19 06:00 Intake Total 240 ml Output Total 300 ml Balance -60 ml Laboratory Data 24H LABS Laboratory Tests 2 05/15/19 18:04: Immature Granulocyte % (Auto) 0.7, White Blood Count 8.3, Red Blood Count 3.45L, Hemoglobin 11.0L, Hematocrit 34.6L, Mean Corpuscular Volume 100.3H, Mean Corpuscular Hemoglobin 31.9, Mean Corpuscular Hemoglobin Concent 31.8L, Red Cell Distribution Width 14.1, Platelet Count 242, Neutrophils (%) (Auto) 67.1H, Lymphocytes (%) (Auto) 22.7L, Monocytes (%) (Auto) 5.5H, Eosinophils (%) (Auto) 3.6H, Basophils (%) (Auto) 0.4, Neutrophils # (Auto) 5.6, Lymphocytes # (Auto) 1.9, Monocytes # (Auto) 0.5, Eosinophils # (Auto) 0.3, Basophils # (Auto) 0.0, Nucleated Red Blood Cells % (auto) 0.0, Anion Gap 8, Glomerular Filtration Rate > 60.0, Calcium Level 9.1, Aspartate Amino Transf (AST/SGOT) 34, Alanine Aminotransferase (ALT/SGPT) 33, Alkaline Phosphatase 99, Total Bilirubin 0.4, Direct Bilirubin 0.2, Ammonia 29, Total Creatine Kinase 75, Creatine Kinase MB 3.7H, Creatine Kinase MB Relative Index 4.93H, Troponin I < 0.02, Total Protein 7.6, Albumin 4.1, Albumin/Globulin Ratio 1.17, Triglycerides Level 161H, Total Cholesterol 99, LDL Cholesterol 29, Non-HDL Cholesterol (LDL + VLDL) 61, Total HDL Cholesterol 38L, Cholesterol/HDL Ratio 2.605, Thyroid Stimulating Hormone (TSH) 2.600, Salicylates Level < 1.7L, Acetaminophen Level < 2.0L, Ethyl Alcohol Level < 0.003 05/15/19 18:15: Bedside Glucose (Misc Panel) 135H 05/15/19 19:20: Urine Color STRAW, Urine Appearance CLEAR, Urine pH 8.0, Urine Specific [place] 1.009, Urine Protein NEGATIVE, Urine Glucose (UA) NEGATIVE, Urine Ketones NEGATIVE, Urine Blood NEGATIVE, Urine Nitrite NEGATIVE, Urine Bilirubin NEGATIVE, Urine Urobilinogen 0.2, Urine Leukocyte Esterase 1+H, Urine WBC (Auto) 30H, Urine RBC (Auto) 1, Urine Hyaline Casts (Auto) 0, Urine Bacteria (Auto) NEGATIVE, Urine Squamous Epithelial Cells 0, Urine Transitional Epithelial Cells 1, Urine Sperm (Auto) , Urine Amphetamines Screen NEGATIVE, Urine Benzodiazepines Screen NEGATIVE, Urine Opiates Screen NEGATIVE, Urine Methadone Screen NEGATIVE, Urine Barbiturates Screen NEGATIVE, Urine Phencyclidine Screen NEGATIVE, Urine Cocaine Metabolite Screen NEGATIVE, Urine Cannabinoids Screen NEGATIVE 05/16/19 05:29: Nucleated Red Blood Cells % (auto) 0.0, Anion Gap 7L, Glomerular Filtration Rate > 60.0, Calcium Level 8.2L, Estimated Mean Plasma Glucose 174H, Hemoglobin A1c 7.7, Blood Urea Nitrogen 10, Creatinine 0.78, Sodium Level 136, Potassium Level 3.9, Chloride Level 105, Carbon Dioxide Level 24 05/16/19 11:59: Bedside Glucose (Misc Panel) 110 CBC/BMP Laboratory Tests 05/15/19 18:04 Red Blood Count 3.45 L, Mean Corpuscular Volume 100.3 H, Mean Corpuscular Hemoglobin 31.9, Mean Corpuscular Hemoglobin Concent 31.8 L, Red Cell Distribution Width 14.1, Neutrophils (%) (Auto) 67.1 H, Lymphocytes (%) (Auto) 22.7 L, Monocytes (%) (Auto) 5.5 H, Eosinophils (%) (Auto) 3.6 H, Basophils (%) (Auto) 0.4, Neutrophils # (Auto) 5.6, Lymphocytes # (Auto) 1.9, Monocytes # (Auto) 0.5, Eosinophils # (Auto) 0.3, Basophils # (Auto) 0.0 05/16/19 05:29 Red Blood Count 3.37 L, Mean Corpuscular Volume 98.2 H, Mean Corpuscular Hemoglobin 31.2, Mean Corpuscular Hemoglobin Concent 31.7 L, Red Cell Distribution Width 14.1, Calcium Level 8.2 L Microbiology Microbiology 05/15/19 Urine Culture, Received Pending JEANE ROMO MD May 16, 2019 15:03
[2019-05-16 16:00] VITALS: BP 149/68
[2019-05-16] MEDS ORDERED: SLF 3 ML SYR IV PRN (16:45)
[2019-05-16] MEDS ORDERED: PRAVASTATIN 20 MG TAB PO SCH (18:00)
[2019-05-16] MEDS: ACETAMINOPHEN TAB 650MG DOSE (2X325MG) PO PRN (18:01)
[2019-05-16 20:00] VITALS: BP 114/55
[2019-05-16] MEDS: SLF 3 ML SYR IV SCH (20:43)
[2019-05-16] MEDS: OMEPRAZOLE 20 MG CAP PO SCH (20:43)
[2019-05-16] MEDS: HEPARIN SOD (PORCINE) 5000 UNITS/ML VIAL SQ SCH (20:43)
[2019-05-16] MEDS: ATORVASTATIN 20 MG TAB PO SCH (20:43)
[2019-05-16] MEDS: LACTOBACILLUS ACIDOPHILUS CAP (BACID) PO SCH (20:43)
[2019-05-17 04:00] VITALS: BP 152/82
[2019-05-17] MEDS: LEVOTHYROXINE 100MCG TABLET (0.1MG) PO SCH (06:45)
[2019-05-17] MEDS: SLF 3 ML SYR IV SCH ×3 (06:47→20:47)
[2019-05-17] MEDS: HumaLOG INSULIN (NovoLOG) PER UNIT SC SCH ×4 (07:30→22:34)
--- NOTE | 2019-05-17 07:33 | REP ---
MR BRAIN WITHOUT CONTRAST: HISTORY: TIAs. COMPARISON: MR 02/07/2018. Areas of increased signal intensity on T2-weighted images are present in the periventricular and subcortical white matter. This represents small vessel ischemic disease. There is no intraparenchymal hemorrhage, infarct, mass, or midline shift. The ventricular system and cortical sulci are dilated consistent with mild volume loss. There is on extracerebral collection. The sinuses are clear. IMPRESSION: 1. Small vessel ischemic disease. 2. Mild volume loss. Electronically Signed by Jp Flores MD 05/17/2019 08:18 A
[2019-05-17 07:52] VITALS: BP 168/88
--- NOTE | 2019-05-17 09:49 | CR ---
DATE OF CONSULTATION: 05/16/2019 REFERRING PHYSICIAN: Dr. Ann Dill REASON FOR CONSULTATION: Slurred speech. HISTORY OF PRESENT ILLNESS: Trinity Parker is an 89-year-old woman who moved from [place] to [facility] this year. She lives at [facility]. She states that she had a hearing test done. When the person performing the hearing test was doing the test, she was unable to hear that individual. She felt shaken up. She developed confusion and trouble speaking. The patient stated that her symptoms occurred around noon time today. The patient arrived in the emergency department at around 6:00 p.m. and her symptoms were better. The patient herself states that she did not go through the ER. She states that she was transferred to her room upstairs. When she got to her room, her symptoms had improved. She fell asleep and woke up this morning and had no problems. The patient states that she was following with a doctor in [place] and had carotid artery stenosis, but it was not as severe at it was found to be at this hospital. The patient fell a few weeks ago when she was in [place]. She had a black left eye. CT scan of her head was unremarkable per history. She had off-and-on headaches at that time. She also feels occasional neck pain. She denies any back pain, seizures, dysphagia, dysarthria, diplopia, urinary incontinence, falls or loss of consciousness. DIAGNOSTIC STUDIES: MRI scan of brain showed small vessel ischemic disease of brain. Carotid ultrasound showed mild right capital internal carotid artery (ICA) and less than 50% left ICA stenosis. CT angiography of neck showed 80% right and 70% left internal carotid artery stenosis. The patient has been seen by vascular surgery and they are planning carotid endarterectomy for her this week. PAST MEDICAL HISTORY: History of transient ischemic attack (TIA) a few years ago when she had slurred speech for a few minutes, hypertension, type 2 diabetes, hypothyroidism, colon cancer status post resection and partial colectomy, cataract surgery. SOCIAL HISTORY: She lives at [facility]. She is a . She denies smoking, alcohol or illicit drugs. FAMILY HISTORY: Significant for diabetes and coronary artery disease. REVIEW OF SYSTEMS: All systems were reviewed and found to be noncontributory except as mentioned in history of present illness. ALLERGIES: PENICILLIN, C[place]AL[place]PE. HOME MEDICATIONS: Aspirin 81 mg by mouth daily, Lipitor 40 mg by mouth daily, cetirizine 10 mg by mouth daily fenofibrate 160 mg by mouth daily, levothyroxine 100 mcg by mouth daily, losartan 25 mg by mouth daily, metformin 1000 mg by mouth twice a day, omeprazole 40 mg by mouth daily, insulin Toujeo 45 units subcutaneous daily. PHYSICAL EXAMINATION: Temperature 98, pulse 90, respiratory rate 18, blood pressure 149/68, 90% saturation on room air. Heart: Regular rate and rhythm. Lungs: Clear to auscultation. Abdomen: Soft, nontender, nondistended. No pedal edema. No musculoskeletal abnormalities. No rash. The patient is awake, alert, oriented to place and person. Extraocular muscles are intact. No facial weakness. Tongue and uvula are midline. Visual johnson are full to confrontation. 5/5 strength in all four extremities. Normal sensation throughout bilaterally. Deep tendon flexes are 1+ in arms and knees and absent at ankles. Gait is normal. ASSESSMENT: 1. Transient ischemic attack. 2. Small vessel ischemic disease of brain. 3. 80% right and 70% left internal carotid artery stenosis based on CT angiography of neck. PLAN: 1. Aspirin 81 mg by mouth daily. 2. Lipitor 40 mg by mouth daily. 3. The patient has been seen by vascular surgery and they are planning carotid endarterectomy this week. 4. Plavix 75 mg by mouth daily. 5. Physical and occupational therapy. 6. She will likely need left carotid endarterectomy in the future as well. 7. Follow with our office in 2-4 weeks after hospital discharge.
[2019-05-17] MEDS: CETIRIZINE (ZyrTEC) 10 MG TAB PO SCH (10:12)
[2019-05-17] MEDS: CLOPIDOGREL 75 MG TAB PO SCH (10:12)
[2019-05-17] MEDS: ASPIRIN 81 MG ENTERIC TAB PO SCH (10:12)
[2019-05-17] MEDS: LOSARTAN 25 MG TAB PO SCH (10:12)
[2019-05-17] MEDS: HEPARIN SOD (PORCINE) 5000 UNITS/ML VIAL SQ SCH ×2 (10:13→20:47)
--- NOTE | 2019-05-17 10:52 | IPNPDOC ---
Date Seen The patient was seen on 05/17/19. Progress Note Vascular surgery. Dr. Rosenbaum HPI: 89 year old F admitted with TIA symptoms 05/15/19, found to have carotid stenosis, vascular surgery is consulted. History is taken from the patient and 2 of her daughters. They report that she moved from [place] 2 months ago and has been living at [facility]. 04/24/2019 she was hospitalized in [place] with a fall and loss of consciousness. The patient states testing at that time was unremarkable and the patient was discharged. She has resolving ecchymosis on the left side of her face and head contusion of the left shoulder. The pt reports no concerns today. States speeh is normal and denies confusion. Denies any fevers, chills, Headache, Chest Pain, Shortness of breath, cough, palpitations, abdominal pain, N/V/D or changes in bowel or bladder habits. PAST MEDICAL / SURGICAL HISTORY: Hypertension Diabetes mellitus type 2 Dyslipidemia GERD Hypothyroidism Colon cancer status post resection partial colectomy, cataract surgery PE: GEN: 89 yo F, appears stated age. Well-nourished, well developed. No acute distress. Alert and oriented x 3. HEENT: Ecchymosis is noted around the left eye. This appears to be resolving. Sclera are nonicteric. Conjunctiva without injection. No facial asymmetry. Moist mucous membranes. CHEST: Regular rate and rhythm, +S1, +S2. LUNGS: Clear to auscultation bilaterally. No wheezes, rales, or rhonchi. ABD: Round, soft, non-tender, non-distended. EXT: No lower extremity edema appreciated. SKIN: [place], dry, warm. Good capillary refill. No rashes. NEURO: Alert and oriented x 3. Cranial nerves III-XII are intact. No focal deficits appreciated at this time. Patient is providing accurate history. Speech is clear. CT head No acute abnormality Carotid ultrasound COMMENT: Carotid Stenosis Reference using SRU criteria: Mild: less than 50% stenosis. ICA PSV is less than 125 cm/second and plaque or intimal thickening is visible. Moderate: 50-69% stenosis. ICA PSV is 125 to 230 cm/second and plaque is visible. Severe: 70-94% stenosis. ICA PSV is more than 230 cm/second and visible plaque and lumen narrowing are seen. Near occlusion: 95-99% stenosis. ICA PSV is variable and significant plaque and luminal narrowing are seen. Occluded: 100% stenosis. No flow identified. Electronically signed by: Lito Hernández On 05/15/2019 22:28:32 PM CTA neck 1. Severe stenosis of 80% of the right internal carotid artery at its origin. 2. Severe stenosis of 70% of the left internal carotid artery at its origin. Electronically Signed by Jp Flores MD 05/16/2019 12:47 P MRI brain. Pending A&P: 1. Carotid stenosis. The patient was noted to have confusion and dysarthria consistent with TIA symptoms on admission. The patient also reports an episode of fall and loss of consciousness in [place] 04/24/19. CTA neck indicates 80% right ICA stenosis, 70% left ICA stenosis. MRI brain small vessel disease and volume loss. Continue aspirin 81 mg daily. Plavix 75 mg daily. Continue statin. The patient is reviewed by Dr. Rosenbaum. Tentative plan for right CEA Tuesday05/18/19 pending medical clearance. This was reviewed with the patient and her daughters 05/16/19. The procedure, risks, and benefits have been discussed. Dr. Rosenbaum will discuss further with the patient and her family. VS, I&O, 24H, Fishbone Vital Signs/I&O Vital Signs Date Time Temp Pulse Resp B/P (MAP) Pulse Ox O2 Delivery O2 Flow Rate FiO2 05/17/19 10:12 168/88 05/17/19 07:52 97.1 88 20 98 05/16/19 00:36 Room Air I&O- Last 24 Hours up to 6 AM 05/17/19 06:00 Intake Total 1180 ml Output Total 1100 ml Balance 80 ml Laboratory Data 24H LABS Laboratory Tests 2 05/16/19 11:59: Bedside Glucose (Misc Panel) 110 05/16/19 16:45: Bedside Glucose (Misc Panel) 145H 05/16/19 21:44: Bedside Glucose (Misc Panel) 138H 05/17/19 06:51: Bedside Glucose (Misc Panel) 148H Microbiology Microbiology 05/15/19 Urine Culture - Final, Complete Jojo Guillory May 17, 2019 10:52
[2019-05-17 12:00] VITALS: BP 152/94
--- NOTE | 2019-05-17 13:04 | IPNPDOC ---
Subjective Date Seen The patient was seen on 05/17/19. Subjective Chief Complaint/HPI Patient seen and examined at the bedside. No acute overnight events noted. Objective Physical Examination General Exam: Positive: Alert, Cooperative, No Acute Distress Eye Exam: Positive: PERRLA, Conjunctiva & lids normal, EOMI; Negative: Sclera icteric ENT Exam: Positive: Atraumatic, Mucous membr. moist/pink Neck Exam: Negative: JVD Chest Exam: Positive: Clear to auscultation, Normal air movement Heart Exam: Positive: Rate Normal, Normal S1, Normal S2 Abdomen Exam: Positive: Soft; Negative: Tenderness Extremity Exam: Negative: Tenderness, Swelling Neuro Exam: Positive: Normal Speech, Strength at 5/5 X4 ext, Sensation Intact, Cranial Nerves 3-12 NL Psych Exam: Positive: Mental status NL, Mood NL, Oriented x 3 Assessment /Plan Plan/VTE VTE Prophylaxis Ordered?: Yes Plan Transient Ischemic Attack Symptoms resolved prior to coming to the ER However, work up notable for 80% stenosis of ANASTASIA and 70% on LICA on CTA Neck MRI Brain notable for small vessel ischemic disease Cont ASA, Plavix, Statin for now Vascular surgery consulted-->Will tentatively schedule the patient for right CEA on 05/18, and will need Left CEA in the future Neuro input appreciated At this time, the patient does not need further invasive work up, and is medically optimized for this intermediate risk procedure Chronic Hypertension Continue home meds Diabetes mellitus type 2 Cont ISS Hypothyroidism Resume Synthroid DVT Prophylaxis Heparin SC VS, I&O, 24H, Fishbone Vital Signs/I&O Vital Signs Date Time Temp Pulse Resp B/P (MAP) Pulse Ox O2 Delivery O2 Flow Rate FiO2 05/17/19 10:12 168/88 05/17/19 07:52 97.1 88 20 98 05/16/19 00:36 Room Air I&O- Last 24 Hours up to 6 AM 05/17/19 06:00 Intake Total 1180 ml Output Total 1100 ml Balance 80 ml Laboratory Data 24H LABS Laboratory Tests 2 05/16/19 16:45: Bedside Glucose (Misc Panel) 145H 05/16/19 21:44: Bedside Glucose (Misc Panel) 138H 05/17/19 06:51: Bedside Glucose (Misc Panel) 148H 05/17/19 11:33: Bedside Glucose (Misc Panel) 118H Microbiology Microbiology 05/15/19 Urine Culture - Final, Complete JEANE ROMO MD May 17, 2019 13:04
[2019-05-17 15:03] VITALS: BP 132/80
[2019-05-17] MEDS: ATORVASTATIN 20 MG TAB PO SCH (20:46)
[2019-05-17] MEDS: LACTOBACILLUS ACIDOPHILUS CAP (BACID) PO SCH (20:46)
[2019-05-17] MEDS: OMEPRAZOLE 20 MG CAP PO SCH (20:47)
[2019-05-17 22:00] VITALS: BP 150/71
[2019-05-18] MEDS: SLF 3 ML SYR IV SCH ×3 (05:34→22:35)
[2019-05-18] MEDS: LEVOTHYROXINE 100MCG TABLET (0.1MG) PO SCH (05:34)
[2019-05-18 06:00] VITALS: BP 135/63
[2019-05-18] MEDS: CETIRIZINE (ZyrTEC) 10 MG TAB PO SCH (09:01)
[2019-05-18] MEDS: ASPIRIN 81 MG ENTERIC TAB PO SCH (09:01)
[2019-05-18] MEDS: CLOPIDOGREL 75 MG TAB PO SCH (09:01)
[2019-05-18] MEDS: HEPARIN SOD (PORCINE) 5000 UNITS/ML VIAL SQ SCH ×2 (09:01→22:35)
[2019-05-18] MEDS: HumaLOG INSULIN (NovoLOG) PER UNIT SC SCH ×4 (09:02→21:00)
[2019-05-18] MEDS: LOSARTAN 25 MG TAB PO SCH (09:10)
--- NOTE | 2019-05-18 10:14 | IPNPDOC ---
Date Seen The patient was seen on 05/18/19. Progress Note Vascular surgery. Dr. Rosenbaum HPI: 89 year old F admitted with TIA symptoms 05/15/19, found to have carotid stenosis, vascular surgery is consulted. History is taken from the patient and 2 of her daughters. They report that she moved from [place] 2 months ago and has been living at [facility]. 04/24/2019 she was hospitalized in [place] with a fall and loss of consciousness. The patient states testing at that time was unremarkable and the patient was discharged. She has resolving ecchymosis on the left side of her face and head contusion of the left shoulder. The pt reports no concerns today. States speech is normal and denies confusion. Pt is sitting on side of bed. Denies any fevers, chills, Headache, Chest Pain, Shortness of breath, cough, palpitations, abdominal pain, N/V/D or changes in bowel or bladder habits. PAST MEDICAL / SURGICAL HISTORY: Hypertension Diabetes mellitus type 2 Dyslipidemia GERD Hypothyroidism Colon cancer status post resection partial colectomy, cataract surgery PE: GEN: 89 yo F, appears stated age. Alert and oriented x 3. HEENT: Ecchymosis is noted around the left eye. This appears to be resolving. No facial asymmetry. Moist mucous membranes. CHEST: Regular rate and rhythm, +S1, +S2. LUNGS: Clear to auscultation bilaterally. No wheezes, rales, or rhonchi. ABD: Round, soft, non-tender, non-distended. EXT: No lower extremity edema appreciated. SKIN: [place], dry, warm. Good capillary refill. No rashes. NEURO: Alert and oriented x 3. Cranial nerves III-XII are intact. No focal deficits appreciated at this time. Patient is providing accurate history. Speech is clear. CT head No acute abnormality Carotid ultrasound COMMENT: Carotid Stenosis Reference using SRU criteria: Mild: less than 50% stenosis. ICA PSV is less than 125 cm/second and plaque or intimal thickening is visible. Moderate: 50-69% stenosis. ICA PSV is 125 to 230 cm/second and plaque is visible. Severe: 70-94% stenosis. ICA PSV is more than 230 cm/second and visible plaque and lumen narrowing are seen. Near occlusion: 95-99% stenosis. ICA PSV is variable and significant plaque and luminal narrowing are seen. Occluded: 100% stenosis. No flow identified. Electronically signed by: Lito Hernández On 05/15/2019 22:28:32 PM CTA neck 1. Severe stenosis of 80% of the right internal carotid artery at its origin. 2. Severe stenosis of 70% of the left internal carotid artery at its origin. Electronically Signed by Jp Flores MD 05/16/2019 12:47 P MRI brain. Pending A&P: 1. Carotid stenosis. The patient was noted to have confusion and dysarthria consistent with TIA symptoms on admission. The patient also reports an episode of fall and loss of consciousness in [place] 04/24/19. CTA neck indicates 80% right ICA stenosis, 70% left ICA stenosis. MRI brain small vessel disease and volume loss. Continue aspirin 81 mg daily. Plavix 75 mg daily. Continue statin. The patient is reviewed by Dr. Rosenbaum. He has discussed surgical procedure with the pt this AM. The pt wishes to proceed. Plan for right CEA later today. The pt is felt to be medically optimized for the procedure. This has been reviewed with the patient and her daughters 05/16/19. The procedure, risks, and benefits have been discussed. Dr. Rosenbaum will discuss further with her family prior to surgery. VS, I&O, 24H, Fishbone Vital Signs/I&O Vital Signs Date Time Temp Pulse Resp B/P (MAP) Pulse Ox O2 Delivery O2 Flow Rate FiO2 05/18/19 09:10 138/72 05/18/19 06:00 96.0 86 18 94 05/16/19 00:36 Room Air I&O- Last 24 Hours up to 6 AM 05/18/19 06:00 Intake Total 1200 ml Output Total 150 ml Balance 1050 ml Laboratory Data 24H LABS Laboratory Tests 2 05/17/19 11:33: Bedside Glucose (Misc Panel) 118H 05/17/19 17:07: Bedside Glucose (Misc Panel) 207H 05/17/19 21:39: Bedside Glucose (Misc Panel) 343H 05/18/19 06:58: Bedside Glucose (Misc Panel) 165H Microbiology Microbiology 05/15/19 Urine Culture - Final, Complete Jojo Guillory May 18, 2019 10:14
--- NOTE | 2019-05-18 13:59 | IPNPDOC ---
Subjective Date Seen The patient was seen on 05/18/19. Subjective Chief Complaint/HPI Patient seen and examined at the bedside. Denies any acute overnight complaints. She is scheduled for a right carotid endarterectomy today. Objective Physical Examination General Exam: Positive: Alert, Cooperative, No Acute Distress Eye Exam: Positive: PERRLA, Conjunctiva & lids normal, EOMI; Negative: Sclera icteric ENT Exam: Positive: Atraumatic, Mucous membr. moist/pink Neck Exam: Negative: JVD Chest Exam: Positive: Clear to auscultation, Normal air movement Heart Exam: Positive: Rate Normal, Normal S1, Normal S2 Abdomen Exam: Positive: Soft; Negative: Tenderness Extremity Exam: Negative: Tenderness, Swelling Neuro Exam: Positive: Normal Speech, Strength at 5/5 X4 ext, Sensation Intact, Cranial Nerves 3-12 NL Psych Exam: Positive: Mental status NL, Mood NL, Oriented x 3 Assessment /Plan Plan/VTE VTE Prophylaxis Ordered?: Yes Plan Transient Ischemic Attack Symptoms resolved prior to coming to the ER However, work up notable for 80% stenosis of ANASTASIA and 70% on LICA on CTA Neck MRI Brain notable for small vessel ischemic disease Cont ASA, Plavix, Statin Vascular surgery consulted-->Will tentatively schedule the patient for right CEA today, and will need Left CEA in the future Neuro input appreciated We will follow up postoperatively Chronic Hypertension Continue home meds Diabetes mellitus type 2 Cont ISS Hypothyroidism Resume Synthroid DVT Prophylaxis Heparin SC VS, I&O, 24H, Fishbone Vital Signs/I&O Vital Signs Date Time Temp Pulse Resp B/P (MAP) Pulse Ox O2 Delivery O2 Flow Rate FiO2 05/18/19 09:10 138/72 05/18/19 06:00 96.0 86 18 94 05/16/19 00:36 Room Air I&O- Last 24 Hours up to 6 AM 05/18/19 05:59 Intake Total 1200 ml Output Total 150 ml Balance 1050 ml Laboratory Data 24H LABS Laboratory Tests 2 05/17/19 17:07: Bedside Glucose (Misc Panel) 207H 05/17/19 21:39: Bedside Glucose (Misc Panel) 343H 05/18/19 06:58: Bedside Glucose (Misc Panel) 165H 05/18/19 11:39: Bedside Glucose (Misc Panel) 147H Microbiology Microbiology 05/15/19 Urine Culture - Final, Complete JEANE ROMO MD May 18, 2019 13:59
[2019-05-18 14:00] VITALS: BP 132/76
[2019-05-18] MEDS ORDERED: THROMBIN SOLN 20,000 UNITS KIT As Ordered ONE (17:33)
[2019-05-18] MEDS ORDERED: LIDOCAINE 1% SDV INJ 30 ML VIAL As Ordered ONE (17:33)
[2019-05-18] MEDS ORDERED: BUPIVACAINE HCL 0.5% 30 ML VIAL As Ordered ONE (17:34)
[2019-05-18] MEDS ORDERED: LIDOCAINE 2% MDV 20 ML VIAL As Ordered ONE (17:34)
[2019-05-18] MEDS ORDERED: HEPARIN SOD (PORCINE) 5000 UNITS/ML VIAL As Ordered ONE ×2 (17:34→19:45)
[2019-05-18] MEDS ORDERED: PROPOFOL 200 MG/20 ML VIAL As Ordered ONE ×2 (18:08→20:30)
[2019-05-18] MEDS ORDERED: ONDANSETRON 4MG/2ML VIAL (J2405) As Ordered ONE (18:08)
[2019-05-18] MEDS ORDERED: LIDOCAINE 2% INJ 100 MG/5 ML SDV (FOR ANES.) As Ordered ONE (18:08)
[2019-05-18] MEDS ORDERED: MIDAZOLAM INJ 2 MG/2 ML VIAL (J2250) As Ordered ONE (18:09)
[2019-05-18] MEDS ORDERED: fentaNYL 100 MCG/2 ML INJECTION (J3010) As Ordered ONE (18:09)
[2019-05-18] MEDS ORDERED: ceFAZolin 2 GM/D5W 50 ML IV BAG (J0690 PER 500MG) As Ordered ONE (19:08)
[2019-05-18] MEDS ORDERED: CLINDAMYCIN 600 MG/50 ML PREMIX BAG As Ordered ONE (19:10)
[2019-05-18] MEDS ORDERED: LABETALOL HCL 100 MG/20 ML VIAL As Ordered ONE (19:54)
[2019-05-18] MEDS ORDERED: NITROGLYCERIN IN D5W 25MG/250ML (100MCG/ML) As Ordered ONE (20:00)
[2019-05-18] MEDS ORDERED: LR 1,000 ML IV SCH (21:45)
[2019-05-18] MEDS ORDERED: fentaNYL 100 MCG/2 ML INJECTION (J3010) IV PRN (21:45)
[2019-05-18] MEDS ORDERED: ONDANSETRON 4MG/2ML VIAL (J2405) IV PRN (21:45)
[2019-05-18 22:15] VITALS: BP_SYST 154; BP_SYST 162; BP_DIAS 67; BP_DIAS 69
[2019-05-18 22:26] VITALS: BP_SYST 146; BP_SYST 158; BP_DIAS 66; BP_DIAS 69
--- NOTE | 2019-05-18 22:32 | ECHO ---
DATE OF PROCEDURE: 05/16/2019 DATE OF : 1930 AGE: 89 REFERRING PROVIDER: Dr. Ann Dill PATIENT LOCATION: Room 3213 REASON FOR THE STUDY: Transient ischemic attack (TIA). 2D MEASUREMENTS: IVS: 1.1 cm LV: 4.3 cm LVPW: 1.1 cm LA: 2.7 cm Aorta: 3.0 cm IVC: 2.0 cm DOPPLER MEASUREMENTS: Peak velocity across the aortic valve: 1.5 m/s Peak velocity across the LVOT: 0.72 m/s Mitral E: 0.77, Mitral A: 1.1 with a ratio of 0.7 Maximum tricuspid valve velocity: 2.0 m/s 2D COMMENTS: 1. Normal left ventricular size, wall thickness, and normal global left ventricular systolic function. The estimated left ventricular systolic ejection fraction is 60-65%. 2. Normal left atrium. Normal right atrium and right ventricle. 3. The atrial septum appeared to be normal without evidence of defect or shunt. 4. Normal aortic root. 5. Trace to small pericardial effusion noted, no evidence of cardiac tamponade. 6. Mildly calcified aortic valve with normal leaflet excursion. Normal mitral valve, tricuspid valve, and pulmonic valve. The proximal pulmonary artery branches were not well visualized. 7. The inferior vena cava is borderline enlarged. DOPPLER: It detects trace aortic regurgitation, trace tricuspid regurgitation. The calculated pulmonary artery systolic pressure was normal, less than 30 mmHg. Abnormal relaxation pattern was noted across the mitral valve leaflets as well as the mitral valve annulus consistent with features of grade 1 left ventricular diastolic dysfunction. IMPRESSION: 1. Normal global left ventricular systolic function. There are some features of left ventricular diastolic dysfunction manifested by abnormal relaxation. 2. Aortic valve sclerosis with trace aortic regurgitation but no aortic stenosis. 3. Trace tricuspid regurgitation. 4. Trace to small pericardial effusion, no evidence of cardiac tamponade. 5. Prior echocardiogram was on 02/08/2018, a small pericardial effusion was noted. KEMAR
[2019-05-18] MEDS: OMEPRAZOLE 20 MG CAP PO SCH (22:34)
[2019-05-18] MEDS: ATORVASTATIN 20 MG TAB PO SCH (22:34)
[2019-05-18] MEDS: LACTOBACILLUS ACIDOPHILUS CAP (BACID) PO SCH (22:34)
[2019-05-18 22:41] VITALS: BP_SYST 145; BP_SYST 159; BP_DIAS 66; BP_DIAS 71
[2019-05-18 23:02] VITALS: BP_SYST 134; BP_SYST 138; BP_DIAS 62; BP_DIAS 64
[2019-05-19] VITALS (19 sets, daily range): BP systolic 93–193; BP diastolic 45–181
[2019-05-19] MEDS ORDERED: MIDAZOLAM INJ 2 MG/2 ML VIAL (J2250) As Ordered ONE ×2 (01:01→01:02)
[2019-05-19] MEDS ORDERED: ETOMIDATE INJ 20MG/10ML VIAL As Ordered ONE (01:03)
[2019-05-19] MEDS ORDERED: SUCCINYLCHOLINE INJ 200 MG/10 ML VIAL (J0330) As Ordered ONE (01:04)
[2019-05-19] MEDS: ACETAMINOPHEN TAB 650MG DOSE (2X325MG) PO PRN ×3 (01:10→17:40)
[2019-05-19 05:07] LABS: HEMATOCRIT 30.2 % (36.0-47.0); HEMOGLOBIN 9.7 g/dl (12.0-15.5); MEAN CORPUSCULAR HEMOGLOBIN 32.9 pg (27.0-33.0); MEAN CORPUSCULAR HGB CONC 32.1 g/dl (32.0-36.5); MEAN CORPUSCULAR VOLUME 102.4 fl (80.0-96.0); PLATELET COUNT, AUTOMATED 191 10^3/uL (150-450); RED BLOOD COUNT 2.95 10^6/uL (4.00-5.40); WHITE BLOOD COUNT 10.7 10^3/uL (4.0-10.0)
[2019-05-19 05:23] LABS: INR 1.14; PROTHROMBIN TIME 14.3 SECONDS (11.8-14.0)
[2019-05-19] MEDS: LEVOTHYROXINE 100MCG TABLET (0.1MG) PO SCH (05:28)
[2019-05-19] MEDS: SLF 3 ML SYR IV SCH ×3 (05:28→21:33)
[2019-05-19 05:35] LABS: BLOOD UREA NITROGEN 14 MG/DL (7-18); CALCIUM LEVEL 8.7 MG/DL (8.8-10.2); CARBON DIOXIDE LEVEL 24 MEQ/L (21-32); CHLORIDE LEVEL 103 MEQ/L (98-107); CREATININE FOR GFR 0.91 MG/DL (0.55-1.30); GLOMERULAR FILTRATION RATE > 60.0 (>32); GLUCOSE, FASTING 196 MG/DL (70-100); POTASSIUM SERUM 4.4 MEQ/L (3.5-5.1); SODIUM LEVEL 136 MEQ/L (136-145)
[2019-05-19] MEDS: CLOPIDOGREL 75 MG TAB PO SCH (08:53)
[2019-05-19] MEDS: HumaLOG INSULIN (NovoLOG) PER UNIT SC SCH ×4 (08:53→21:00)
[2019-05-19] MEDS: LOSARTAN 25 MG TAB PO SCH (08:54)
[2019-05-19] MEDS: CETIRIZINE (ZyrTEC) 10 MG TAB PO SCH (08:54)
[2019-05-19] MEDS: ASPIRIN 81 MG ENTERIC TAB PO SCH (08:54)
[2019-05-19] MEDS: HEPARIN SOD (PORCINE) 5000 UNITS/ML VIAL SQ SCH ×2 (08:57→21:32)
--- NOTE | 2019-05-19 12:50 | IPNPDOC ---
Subjective Date Seen The patient was seen on 05/19/19. Subjective Chief Complaint/HPI Patient seen and examined at the bedside. She is s/p Right CEA yesterday. This morning she states that she is feeling well and denies any complaints of pain or discomfort. Objective Physical Examination General Exam: Positive: Alert, Cooperative, No Acute Distress Eye Exam: Positive: PERRLA, Conjunctiva & lids normal, EOMI; Negative: Sclera icteric ENT Exam: Positive: Atraumatic, Mucous membr. moist/pink Neck Exam: Positive: Other (s/p right CEA, bandaging noted to have blood on it. EMILY drain notable for a small amount of bloody output) Chest Exam: Positive: Clear to auscultation, Normal air movement Heart Exam: Positive: Rate Normal, Normal S1, Normal S2 Abdomen Exam: Positive: Soft; Negative: Tenderness Extremity Exam: Negative: Tenderness, Swelling Psych Exam: Positive: Oriented x 3 Assessment /Plan Plan/VTE VTE Prophylaxis Ordered?: Yes Plan Transient Ischemic Attack Symptoms resolved prior to coming to the ER Work up notable for 80% stenosis of ANASTASIA and 70% on LICA on CTA Neck MRI Brain notable for small vessel ischemic disease Cont ASA, Plavix, Statin Vascular surgery consulted-->s/p right CEA 05/18/19, and will need Left CEA in the future Neuro input appreciated We will follow up postoperatively Chronic Hypertension Continue home meds Diabetes mellitus type 2 Cont ISS Hypothyroidism Resume Synthroid DVT Prophylaxis Heparin SC VS, I&O, 24H, Fishbone Vital Signs/I&O Vital Signs Date Time Temp Pulse Resp B/P (MAP) Pulse Ox O2 Delivery O2 Flow Rate FiO2 05/19/19 10:00 101 18 126/62 (86) 96 130/69 05/19/19 08:00 99.1 05/19/19 07:00 1.0 05/16/19 00:36 Room Air I&O- Last 24 Hours up to 6 AM 05/19/19 05:59 Intake Total 1770 ml Output Total 490 ml Balance 1280 ml Laboratory Data 24H LABS Laboratory Tests 2 05/18/19 17:51: Bedside Glucose (Misc Panel) 127H 05/18/19 21:27: Bedside Glucose (Misc Panel) 201H 05/19/19 05:00: Nucleated Red Blood Cells % (auto) 0.0, Prothrombin Time 14.3H, Prothromb Time International Ratio 1.14, Anion Gap 9, Glomerular Filtration Rate > 60.0, Blood Urea Nitrogen 14, Creatinine 0.91, Sodium Level 136, Potassium Level 4.4, Chloride Level 103, Carbon Dioxide Level 24, Calcium Level 8.7L 05/19/19 12:01: Bedside Glucose (Misc Panel) 292H CBC/BMP Laboratory Tests 05/19/19 05:00 Red Blood Count 2.95 L, Mean Corpuscular Volume 102.4 H, Mean Corpuscular Hemoglobin 32.9, Mean Corpuscular Hemoglobin Concent 32.1, Red Cell Distribution Width 14.2, Calcium Level 8.7 L Microbiology Microbiology 05/15/19 Urine Culture - Final, Complete JEANE ROMO MD May 19, 2019 12:50
[2019-05-19] MEDS: ATORVASTATIN 20 MG TAB PO SCH (21:32)
[2019-05-19] MEDS: LACTOBACILLUS ACIDOPHILUS CAP (BACID) PO SCH (21:32)
[2019-05-19] MEDS: OMEPRAZOLE 20 MG CAP PO SCH (21:32)
[2019-05-20] VITALS (10 sets, daily range): BP systolic 109–148; BP diastolic 51–66
[2019-05-20] MEDS ORDERED: SENNA 8.6 MG TAB (SENOKOT) PO PRN (00:15)
[2019-05-20 04:12] LABS: HEMATOCRIT 26.6 % (36.0-47.0); HEMOGLOBIN 8.5 g/dl (12.0-15.5); MEAN CORPUSCULAR HEMOGLOBIN 31.7 pg (27.0-33.0); MEAN CORPUSCULAR VOLUME 99.3 fl (80.0-96.0); PLATELET COUNT, AUTOMATED 161 10^3/uL (150-450); RED BLOOD COUNT 2.68 10^6/uL (4.00-5.40); WHITE BLOOD COUNT 7.9 10^3/uL (4.0-10.0)
[2019-05-20 04:29] LABS: BLOOD UREA NITROGEN 11 MG/DL (7-18); CALCIUM LEVEL 8.4 MG/DL (8.8-10.2); CARBON DIOXIDE LEVEL 27 MEQ/L (21-32); CHLORIDE LEVEL 104 MEQ/L (98-107); CREATININE FOR GFR 0.82 MG/DL (0.55-1.30); GLOMERULAR FILTRATION RATE > 60.0 (>32); GLUCOSE, FASTING 199 MG/DL (70-100); POTASSIUM SERUM 3.9 MEQ/L (3.5-5.1); SODIUM LEVEL 136 MEQ/L (136-145)
[2019-05-20] MEDS: SLF 3 ML SYR IV SCH (05:31)
[2019-05-20] MEDS: LEVOTHYROXINE 100MCG TABLET (0.1MG) PO SCH (05:31)
[2019-05-20] MEDS: HumaLOG INSULIN (NovoLOG) PER UNIT SC SCH ×2 (07:55→11:34)
[2019-05-20] MEDS: ASPIRIN 81 MG ENTERIC TAB PO SCH (08:56)
[2019-05-20] MEDS: CLOPIDOGREL 75 MG TAB PO SCH (08:56)
[2019-05-20] MEDS: CETIRIZINE (ZyrTEC) 10 MG TAB PO SCH (08:56)
[2019-05-20] MEDS: LOSARTAN 25 MG TAB PO SCH (08:57)
[2019-05-20] MEDS: HEPARIN SOD (PORCINE) 5000 UNITS/ML VIAL SQ SCH (08:57)
[2019-05-20] MEDS ORDERED: CLOP75TA2 PO (11:06)
[2019-05-20] MEDS: ACETAMINOPHEN TAB 650MG DOSE (2X325MG) PO PRN (11:34)
--- NOTE | 2019-05-20 14:15 | DS.PDOC ---
Discharge Summary General Date of Admission May 17, 2019 at 11:07 Date of Discharge 05/20/19 Specialist/Consultants Involve Dr. Rosenbaum of Vascular Surgery, Dr. Forbes of Neurology Discharge Summary PROCEDURES PERFORMED DURING STAY: s/p Right CEA on 05/18/[address] Rosenbaum of Vascular Surgery ADMITTING/DISCHARGE DIAGNOSES: Transient Ischemic Attack B/L Carotid Stenosis s/p Right CEA on 05/18/[address] Rosenbaum of Vascular Surgery COMPLICATIONS/CHIEF COMPLAINT: Tia (Trasient Ischemic Attack). HISTORY OF PRESENT ILLNESS: . 89-year-old female who was brought to the ED by her daughter after having an episode of difficulty speaking, and confusion that occurred at around noon today while she is getting her ears checked. Per discussion with the ED attending, by the time the patient arrived and was evaluated, chart was around 6 PM her symptoms had completely resolved. The patient had a fall 3 weeks prior, and was evaluated at a hospital in [place] and was sent home. Per chart review, the patient had similar symptoms in February 2018, was admitted for TIA, and had a complete neurological workup which was unremarkable.The patient was admitted to the hospitalist service and a consult was placed to Neurology for further evaluation and management. Transient Ischemic Attack, B/L Carotid Stenosis Symptoms resolved prior to coming to the ER Work up notable for 80% stenosis of ANASTASIA and 70% on LICA on CTA Neck MRI Brain notable for small vessel ischemic disease Cont ASA, Plavix, Statin Vascular surgery consulted-->s/p right CEA 05/18/19, and will need Left CEA in the future Neuro input appreciated Follow up outpatient with Vascular Surgery, Neuro Chronic Hypertension Continue home meds Diabetes mellitus type 2 Cont ISS Hypothyroidism Resume Synthroid DISCHARGE MEDICATIONS: Please see below. ALLERGIES: Please see below. PHYSICAL EXAMINATION ON DISCHARGE: VITAL SIGNS: Please see below. General Exam: Positive: Alert, Cooperative, No Acute Distress Eye Exam: Positive: PERRLA, Conjunctiva & lids normal, EOMI; Negative: Sclera icteric ENT Exam: Positive: Atraumatic, Mucous membr. moist/pink Neck Exam: Positive: Other Bruising noted on the right side of the neck from recent surgical intervention. No tenderness to palpation Chest Exam: Positive: Clear to auscultation, Normal air movement Heart Exam: Positive: Rate Normal, Normal S1, Normal S2 Abdomen Exam: Positive: Soft; Negative: Tenderness Extremity Exam: Negative: Tenderness, Swelling Psych Exam: Positive: Oriented x 3 LABORATORY DATA: Please see below. IMAGING: DATE OF PROCEDURE: 05/16/2019 DATE OF : 1930 AGE: 89 REFERRING PROVIDER: Dr. Ann Dill PATIENT LOCATION: Room 3213 REASON FOR THE STUDY: Transient ischemic attack (TIA). 2D MEASUREMENTS: IVS: 1.1 cm LV: 4.3 cm LVPW: 1.1 cm LA: 2.7 cm Aorta: 3.0 cm IVC: 2.0 cm DOPPLER MEASUREMENTS: Peak velocity across the aortic valve: 1.5 m/s Peak velocity across the LVOT: 0.72 m/s Mitral E: 0.77, Mitral A: 1.1 with a ratio of 0.7 Maximum tricuspid valve velocity: 2.0 m/s 2D COMMENTS: 1. Normal left ventricular size, wall thickness, and normal global left ventricular systolic function. The estimated left ventricular systolic ejection fraction is 60-65%. 2. Normal left atrium. Normal right atrium and right ventricle. 3. The atrial septum appeared to be normal without evidence of defect or shunt. 4. Normal aortic root. 5. Trace to small pericardial effusion noted, no evidence of cardiac tamponade. 6. Mildly calcified aortic valve with normal leaflet excursion. Normal mitral valve, tricuspid valve, and pulmonic valve. The proximal pulmonary artery branches were not well visualized. 7. The inferior vena cava is borderline enlarged. DOPPLER: It detects trace aortic regurgitation, trace tricuspid regurgitation. The calculated pulmonary artery systolic pressure was normal, less than 30 mmHg. Abnormal relaxation pattern was noted across the mitral valve leaflets as well as the mitral valve annulus consistent with features of grade 1 left ventricular diastolic dysfunction. IMPRESSION: 1. Normal global left ventricular systolic function. There are some features of left ventricular diastolic dysfunction manifested by abnormal relaxation. 2. Aortic valve sclerosis with trace aortic regurgitation but no aortic stenosis. 3. Trace tricuspid regurgitation. 4. Trace to small pericardial effusion, no evidence of cardiac tamponade. 5. Prior echocardiogram was on 02/08/2018, a small pericardial effusion was noted. EXAM: US Duplex Bilateral Extracranial Arteries EXAM DATE/TIME: 05/15/2019 9:15 PM CLINICAL HISTORY: 89 years old, female; Speech disturbance; Dysphasia; Additional info: TIA, date was changed to 05/15/2019 , nurse spoke w/ doctor TECHNIQUE: Imaging protocol: Real-time Duplex ultrasound scan of the Bilateral carotid and vertebral arteries combining yanez scale, color Doppler and spectral waveform analysis. COMPARISON: CT Head without contrast 05/15/2019 5:34 PM FINDINGS: Right common carotid artery: Right CCA PSV 90.1 cm/s. Right internal carotid artery: Calcified plaque within the right carotid bulb and proximal right ICA. Right ICA PSV 103.0 cm/s. Right ICA/CCA ratio: Right ICA/CCA ratio 1.14. Right external carotid artery: No stenosis in the origin. Right vertebral artery: Unremarkable. Antegrade flow Left common carotid artery: Left CCA PSV 84.0 cm/s. Left internal carotid artery: Calcified and soft plaque within the left carotid bulb and proximal left ICA. The extent of plaque within the left carotid bulb and proximal ICA appears to have increased significantly compared to the prior carotid ultrasound performed on 02/07/2018. Left ICA PSV 74.7 cm/s. Left ICA/CCA ratio: Left ICA/CCA ratio 0.89. Left external carotid artery: Stenosis at the origin is present. Left vertebral artery: Unremarkable. Antegrade flow. IMPRESSION: 1. Mild right ICA stenosis. 2. Although the left ICA stenosis is estimated to be less than 50% based on peak systolic velocity, there is extensive soft and calcified plaque at the origin of the left internal carotid artery. The amount of plaque has visibly increased since the prior examination. Further evaluation with CT angiography is suggested as clinically indicated. EXAM: CT Head Without Contrast EXAM DATE/TIME: 05/15/2019 5:46 PM CLINICAL HISTORY: 89 years old, female; Altered mental status/memory loss; Additional info: AMS TECHNIQUE: Imaging protocol: Computed tomography images of the head without contrast. Radiation optimization: All CT scans at this facility use at least one of these dose optimization techniques: automated exposure control; mA and/or kV adjustment per patient size (includes targeted exams where dose is matched to clinical indication); or iterative reconstruction. COMPARISON: CT Head without contrast 02/07/2018 10:52 AM FINDINGS: Brain: Global cerebral atrophy is consistent with patient's age. Decreased attenuation within the white matter tracts of both cerebral hemispheres is nonspecific but typically seen with small vessel disease/chronic white matter ischemic changes of aging. No intracranial hemorrhage or mass effect. No acute stroke. Ventricles: Unremarkable. No ventriculomegaly. Bones/joints: Unremarkable. No acute fracture. Sinuses: Visualized sinuses are unremarkable. No fluid levels. Mastoid air cells: Visualized mastoid air cells are well aerated. No mastoid effusion. Soft tissues: Unremarkable. IMPRESSION: No acute abnormality. CHEST, TWO VIEWS: Two views of the chest are performed. Comparison 02/07/2018. There is mild elevation of the right hemidiaphragm with mild right base fibroatelectatic change. No acute infiltrate or pulmonary edema is seen. The heart is normal in size. There is calcification of the thoracic aorta. The mediastinal silhouette is unremarkable and unchanged. There are mild degenerative changes of the spine. IMPRESSION: No acute infiltrate. MR BRAIN WITHOUT CONTRAST: HISTORY: TIAs. COMPARISON: MR 02/07/2018. Areas of increased signal intensity on T2-weighted images are present in the periventricular and subcortical white matter. This represents small vessel ischemic disease. There is no intraparenchymal hemorrhage, infarct, mass, or midline shift. The ventricular system and cortical sulci are dilated consistent with mild volume loss. There is on extracerebral collection. The sinuses are clear. IMPRESSION: 1. Small vessel ischemic disease. 2. Mild volume loss. CT ANGIO NECK: HISTORY: Carotid stenosis. CONTRAST: Isovue 370, 75 mL. Calcified atherosclerotic plaque is present at the origin of the right internal carotid artery. There is severe stenosis of 80% of the right internal carotid artery at its origin. The origin of the right external carotid artery is normal. Calcified atherosclerotic plaques are present at the origins of the left external and internal carotid arteries. There is severe stenosis of 70% of the left internal carotid artery at its origin. There is mild stenosis of 30% of the left external carotid artery at its origin. Calcified atherosclerotic plaques are present in the cavernous internal carotid arteries and supraclinoid right internal carotid artery. These produce at least mild stenosis. Calcified atherosclerotic plaque is present at the origin of the left subclavian artery. There is no significant stenosis. The vertebral arteries are equal in size and patent. IMPRESSION: 1. Severe stenosis of 80% of the right internal carotid artery at its origin. 2. Severe stenosis of 70% of the left internal carotid artery at its origin. PROGNOSIS: Fair ACTIVITY: As tolerated. DIET: 2 g low sodium diet DISCHARGE PLAN: DISPOSITION: . Home with services DISCHARGE INSTRUCTIONS: Follow up with PCP and vascular surgery within 7 days. Follow-up with neurology within 2-4 weeks. Return to the ER for any acute emergencies. DISCHARGE CONDITION: Stable. TIME SPENT ON DISCHARGE: Greater than 30 minutes. Vital Signs/I&Os Vital Signs Date Time Temp Pulse Resp B/P (MAP) Pulse Ox O2 Delivery O2 Flow Rate FiO2 05/20/19 12:00 98.7 90 18 132/63 (86) 94 05/20/19 08:49 2.0 05/16/19 00:36 Room Air I&O- Last 24 Hours up to 6 AM 05/20/19 06:00 Intake Total 1522 ml Output Total 330 ml Balance 1192 ml Laboratory Data Labs 24H Laboratory Tests 2 05/19/19 17:37: Bedside Glucose (Misc Panel) 241H 05/19/19 21:25: Bedside Glucose (Misc Panel) 194H 05/20/19 03:59: Nucleated Red Blood Cells % (auto) 0.0, Anion Gap 5L, Glomerular Filtration Rate > 60.0, Blood Urea Nitrogen 11, Creatinine 0.82, Sodium Level 136, Potassium Level 3.9, Chloride Level 104, Carbon Dioxide Level 27, Calcium Level 8.4L 05/20/19 11:11: Bedside Glucose (Misc Panel) 201H CBC/BMP Laboratory Tests 05/20/19 03:59 Red Blood Count 2.68 L, Mean Corpuscular Volume 99.3 H, Mean Corpuscular Hemoglobin 31.7, Mean Corpuscular Hemoglobin Concent 32.0, Red Cell Distribution Width 14.4, Calcium Level 8.4 L FSBS Laboratory Tests Test 05/19/19 17:37 05/19/19 21:25 05/20/19 11:11 Range/Units Bedside Glucose (Misc Panel) 241 194 201 83-110 MG/DL Microbiology Microbiology 05/15/19 Urine Culture - Final, Complete Discharge Medications Scheduled Acetaminophen/Diphenhydramine (Acetaminophen Pm Caplet) 1 Each Tablet, 1 TAB PO BID, (Reported) Aspirin (Aspir 81) 81 Mg Tablet.dr, 81 MG PO DAILY, (Reported) Atorvastatin Calcium (Atorvastatin Calcium) 40 Mg Tablet, 40 MG PO QPM, (Reported) LAST TAKEN EARLY AFTERNOON Cetirizine HCl (Cetirizine HCl) 10 Mg Tablet, 10 MG PO DAILY, (Reported) Clopidogrel Bisulfate (Clopidogrel) 75 Mg Tablet, 75 MG PO DAILY Fenofibrate (Fenofibrate) 160 Mg Tab, 160 MG PO DAILY, (Reported) 1500 Insulin Glargine,Hum.rec.anlog (Toudulceo Solostar) 300 Unit/Ml Inj, 45 UNIT SC DAILY, (Reported) Levothyroxine Sodium (Levothyroxine Sodium) 100 Mcg Tablet, 100 MCG PO DAILY, (Reported) Losartan Potassium (Losartan Potassium) 25 Mg Tab, 25 MG PO DAILY, (Reported) Metformin HCl (Metformin HCl) 1,000 Mg Tab, 1,000 MG PO BID, (Reported) Omeprazole (Omeprazole) 40 Mg Cap, 40 MG PO QPM, (Reported) Miscellaneous Medications [Patient Comments] , (Reported) PATIENT GETS HER MEDS PREPACKED IN THE MAIL. SHE IS UNSURE TO WHAT SHE HAS TAKEN TODAY Allergies Coded Allergies: Penicillins (Verified Allergy, Severe, swelling, 05/15/19) Cantaloupe (Verified Allergy, Unknown, 02/07/18) JEANE ROMO MD May 20, 2019 14:15
--- NOTE | 2019-05-24 22:55 | RO ---
DATE OF PROCEDURE: 05/18/2019 PREOPERATIVE DIAGNOSIS: Right carotid artery stenosis, transient ischemic attack (TIA). POSTOPERATIVE DIAGNOSIS: Right carotid artery stenosis, transient ischemic attack. PROCEDURE: Right carotid endarterectomy with patch angioplasty with XenoSure biologic patch and usage of a shunt. SURGEON: Dr. Dimple Rosenbaum GRINDER: None. INDICATION: The patient is an 89-year-old female with multiple episodes of TIA who was found to have greater than 80% stenosis in her right internal carotid artery and approximately 70% stenosis in the left internal carotid artery. The patient was evaluated and felt to be good candidate for a right carotid endarterectomy with patch angioplasty and usage of a shunt. ANESTHESIA: Local monitored anesthesia care (MAC). ESTIMATED BLOOD LOSS: 200 mL. IV FLUIDS: 700 mL. HEPARIN: 7000 units. SPECIMEN: Right carotid plaque. DRAINS: #10 EMILY. COMPLICATIONS: None. IMPLANT: XenoSure biologic patch used to close the arteriotomy in the right carotid artery. DESCRIPTION OF PROCEDURE: The patient was taken to the operating room, placed supine on the operating room table and then prepped and draped in a standard surgical fashion. Incision was made along the anterior border of the right sternocleidomastoid muscle and the carotid artery was dissected proximally and distally and encircled with vessel loops. The patient was given 7000 units of heparin. An arteriotomy was made after clamping the internal carotid artery, external carotid artery, and common carotid artery and elongated into the internal carotid artery. The shunt was placed in the internal carotid artery with good backbleeding noted, and the shunt was flushed. Shunt was then inserted into the common carotid artery with flow established from the common carotid artery into the internal carotid artery with Doppler ultrasound interrogation confirming flow noted in the shunt. The endarterectomy was then completed. There was a high-grade focal stenosis at the origin of the right internal carotid artery, which was approximately 90%. Once the endarterectomy was performed, the arteriotomy was closed using a XenoSure biologic patch and #6-0 Prolene suture in running continuous fashion. The shunt was removed prior to completing the closure. The internal carotid artery was retrograde flushed, the common carotid artery was antegrade flushed, and the external carotid artery was retrograde flushed. Flow was then reestablished through the common carotid artery into the external carotid artery while the internal carotid artery remained clamped and then the internal carotid artery was released. Hemostasis was then obtained using thrombin and Gelfoam. A #10 EMILY was then placed in the wound, and the platysma approximated with #2-0 Vicryl suture. The skin closed with #3-0 Monocryl in a running subcuticular fashion. Steri-Strips and dressings were applied. The patient tolerated procedure well. All instrument, sponge and needle counts were correct at the end of the case. There were no complications. Dr. Rosenbaum was present for and directed the entire case. The patient was transferred to the recovery room awake, alert, extubated and in stable condition and fully neurologically intact.
== END 2019-05-20 14:20 | disposition home health service (06) | DRG 39 ==
LOC: M ED 17:17 → M ED INP 17:18 → M PCU 05-16 00:40 → OBSVTOIN 05-17 11:07 → M MSPAV 05-17 14:52 → M ICU 05-18 22:01
PROVIDERS: ADMIT Internal Medicine; ATTEND Internal Medicine
PROC: 03UK0JZ Supplement Right Internal Carotid Artery with Synthetic Substitute, Open Approach (ICD-10-PCS; 2019-05-18)
PROC: 03CK0ZZ Extirpation of Matter from Right Internal Carotid Artery, Open Approach (ICD-10-PCS; principal; 2019-05-18 18:00)
DX: I65.23 Occlusion and stenosis of bilateral carotid arteries (principal); I10 Essential (primary) hypertension; E11.9 Type 2 diabetes mellitus without complications; G45.9 Transient cerebral ischemic attack, unspecified; E03.9 Hypothyroidism, unspecified; Z79.4 Long term (current) use of insulin; Z79.899 Other long term (current) drug therapy; Z79.82 Long term (current) use of aspirin; Z88.0 Allergy status to penicillin; Z91.018 Allergy to other foods; Z85.038 Personal history of other malignant neoplasm of large intestine; D53.9 Nutritional anemia, unspecified; K21.9 Gastro-esophageal reflux disease without esophagitis; E78.5 Hyperlipidemia, unspecified

== ENCOUNTER → 2019-05-25 | Outpatient (CLI) | payer MEDICARE ==
[~2019-05-25] MED LIST changes: +ACET25TA12 PO; +ALL10TAB28 PO; +ASPI81TA85 PO; +ATOR40TA75 PO; +CLOP75TA2 PO; +LEVO100T5 PO; +PATIENT COMMENTS
[2019-05-25 08:49] LABS: BASO % 0.3 % (0.0-1.0); EOS # 0.3 10^3/uL (0.0-0.50); EOS % 3.4 % (0.0-3.0); HEMATOCRIT 31.9 % (36.0-47.0); HEMOGLOBIN 10.2 g/dl (12.0-15.5); LYMPH # 1.7 10^3/uL (1.5-4.5); LYMPH % 18.3 % (24.0-44.0); MEAN CORPUSCULAR HEMOGLOBIN 32.3 pg (27.0-33.0); MEAN CORPUSCULAR VOLUME 100.9 fl (80.0-96.0); MONO # 0.7 10^3/uL (0.0-0.8); MONO % 7.8 % (0.0-5.0); NEUTROPHILS # 6.2 10^3/uL (1.8-7.7); NEUTROPHILS % 68.8 % (36.0-66.0); PLATELET COUNT, AUTOMATED 306 10^3/uL (150-450); RED BLOOD COUNT 3.16 10^6/uL (4.00-5.40)
[2019-05-25 09:06] LABS: HEMOGLOBIN A1c 8.2 %
[2019-05-25 09:30] LABS: ALBUMIN 4.1 GM/DL (3.2-5.2); ALT/SGPT 39 U/L (12-78); BILIRUBIN,TOTAL 0.7 MG/DL (0.2-1.0); BLOOD UREA NITROGEN 12 MG/DL (7-18); CALCIUM LEVEL 9.3 MG/DL (8.8-10.2); CARBON DIOXIDE LEVEL 26 MEQ/L (21-32); CHLORIDE LEVEL 102 MEQ/L (98-107); CHOLESTEROL LEVEL 108 MG/DL (<200); CHOLESTEROL RISK RATIO 3.272 (<5); CREATININE FOR GFR 0.89 MG/DL (0.55-1.30); GLOMERULAR FILTRATION RATE > 60.0 (>32); GLUCOSE, FASTING 159 MG/DL (70-100); HDL CHOLESTEROL 33 MG/DL (>40); LDL CHOLESTEROL 43 MG/DL (<100); NON-HDL-C 75 MG/DL; POTASSIUM SERUM 4.4 MEQ/L (3.5-5.1); SODIUM LEVEL 136 MEQ/L (136-145); TOTAL PROTEIN 7.6 GM/DL (6.4-8.2); TRIGLYCERIDES LEVEL 160 MG/DL (<150)
== END ==
LOC: M LAB 08:08
PROVIDERS: ATTEND Nurse Practitioner Family
DX: I10 Essential (primary) hypertension (principal); Z79.899 Other long term (current) drug therapy

== ENCOUNTER → 2019-06-19 | Outpatient (CLI) | payer MEDICARE ==
[~2019-06-19] MED LIST changes: -ALL10TAB28 PO; +ALL10TAB29 PO
--- NOTE | 2019-06-19 17:15 | REP ---
CAROTID ULTRASOUND: Real-time ultrasound evaluation and duplex Doppler interrogation of the extracranial carotid vasculature. The patient has had recent right carotid endarterectomy reportedly. At the anteromedial aspect of the right carotid bulb. There is a suspected pseudoaneurysm with an oval heterogenous hypoechoic collection seen, appearing to connect with the right carotid bulb via a small neck measuring 4 mm in length and 2 mm in width. 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 The pseudoaneurysm sac measures 4.4 x 2.2 x 2.0 cm. Moderate focal plaque appears calcific in the region of the left carotid bulb. Normal flow velocities are seen bilaterally without duplex Doppler sonographic evidence of hemodynamically significant stenosis. There is normal direction of flow in both vertebral arteries. RIGHT LEFT Peak systolic velocity ICA 140 cm/s 124 cm/s End diastolic velocity ICA 37.6 cm/s 27.6 cm/s Peak systolic velocity CCA 87 cm/s 106 cm/s Peak systolic velocity ECA 196 cm/s 139 cm/s ICA to CCA ratio 1.6 1.2 IMPRESSION: No evidence of hemodynamically significant stenosis sonographically bilaterally, status-post right carotid endarterectomy. 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 No flow is seen in the neck or pseudoaneurysm compatible with thrombosed pseudoaneurysm. This was conveyed to the referring clinician Jojo Guillory at the time of the exam, approximately 3 p.m. 06/19/2019. Electronically Signed by Ethan Valladares MD 06/20/2019 04:58 P
== END ==
LOC: M RAD 13:38
PROVIDERS: ATTEND Physician Assistant
DX: I65.23 Occlusion and stenosis of bilateral carotid arteries (principal)

== ENCOUNTER 2019-07-07 19:49 | Emergency (ER) | payer MEDICARE ==
[~2019-07-07] VITALS: Ht 160 cm; Wt 66.8 kg
[2019-07-07] MEDS ORDERED: IPRATROPIUM 0.5MG/ALBUTEROL 2.5MG INH SOL UD 3ML (DUONEB)(J7620) NEB PRN (20:15)
[2019-07-07] MEDS ORDERED: JANU100T (20:18)
[2019-07-07 20:29] LABS: BASO % 0.2 % (0.0-1.0); EOS # 0.3 10^3/uL (0.0-0.5); EOS % 2.3 % (0.0-3.0); HEMATOCRIT 31.6 % (36.0-47.0); HEMOGLOBIN 9.9 g/dl (12.0-15.5); LYMPH # 1.4 10^3/uL (1.5-5.0); LYMPH % 11.4 % (24.0-44.0); MEAN CORPUSCULAR HEMOGLOBIN 31.3 pg (27.0-33.0); MEAN CORPUSCULAR HGB CONC 31.3 g/dl (32.0-36.5); MONO # 0.7 10^3/uL (0.0-0.8); MONO % 5.6 % (0.0-5.0); NEUTROPHILS # 10.1 10^3/uL (1.5-8.5); PLATELET COUNT, AUTOMATED 269 10^3/uL (150-450); RED BLOOD COUNT 3.16 10^6/uL (4.00-5.40); VENOUS BASE EXCESS -3.5 (-2.0-2.0); VENOUS HCO3 22.1 MEQ/L (23.0-27.0); VENOUS PARTIAL PRESSURE CO2 41.8 mmHg (38.0-50.0); VENOUS PARTIAL PRESSURE O2 97.8 mmHg (30.0-50.0); VENOUS PH 7.341 UNITS (7.330-7.430); VENOUS STANDARD HCO3 21.6 MEQ/L; VENOUS TOTAL CO2 23.4 MEQ/L (24.0-28.0); WHITE BLOOD COUNT 12.6 10^3/uL (4.0-10.0)
[2019-07-07 21:03] LABS: ALBUMIN 3.8 GM/DL (3.2-5.2); ALT/SGPT 29 U/L (12-78); BILIRUBIN,DIRECT 0.2 MG/DL (0.0-0.2); BILIRUBIN,TOTAL 0.4 MG/DL (0.2-1.0); BLOOD UREA NITROGEN 12 MG/DL (7-18); CALCIUM LEVEL 8.6 MG/DL (8.8-10.2); CARBON DIOXIDE LEVEL 24 MEQ/L (21-32); CHLORIDE LEVEL 102 MEQ/L (98-107); CK-MB VALUE MASS 2.5 NG/ML (<3.6); CPK CREATINE PHOSPHOKINASE 85 U/L (26-192); CREATININE FOR GFR 0.99 MG/DL (0.55-1.30); GLOMERULAR FILTRATION RATE 56.2 (>32); GLUCOSE, FASTING 239 MG/DL (70-100); MB/CK RELATIVE INDEX 2.94 (< OR =4); NT-PRO BNP 52 PG/ML (<450); POTASSIUM SERUM 3.9 MEQ/L (3.5-5.1); SODIUM LEVEL 135 MEQ/L (136-145); TOTAL PROTEIN 7.6 GM/DL (6.4-8.2); TROPONIN I < 0.02 NG/ML (< 0.10)
[2019-07-07 21:05] LABS: INR 1.15; PROTHROMBIN TIME 14.4 SECONDS (11.8-14.0)
[2019-07-07 21:15] VITALS: BP 127/59
[2019-07-07 21:47] LABS: INFLUENZA A AMPLIFICATION NEGATIVE (NEGATIVE); INFLUENZA B AMPLIFICATION NEGATIVE (NEGATIVE)
[2019-07-07] MEDS ORDERED: LEVA1TAB2 PO (22:14)
[2019-07-07] MEDS ORDERED: LevoFLOXacin 500 MG TABLET PO ONE (22:15)
[2019-07-07] MEDS ORDERED: ALBUTEROL 90 MCG/ACT 8GM HFA INHALER INH ONE (22:15)
--- NOTE | 2019-07-08 11:06 | REP ---
CHEST PA AND LATERAL: 07/07/2019. Comparison: 05/15/2019. Clinical history: Dyspnea and cough. Findings: There is some mild elevation of the right diaphragm. Patchy atelectasis or infiltrate adjacent to the diaphragm and some retrocardiac left lower lobe patchy atelectasis or infiltrate. No pleural effusion or dense consolidation with air bronchograms. Some peribronchial thickening noted bilaterally suggesting bronchitis or reactive airway disease. Heart size unchanged. The aorta is calcified tortuous at the arch but without aneurysm. Airway intact bony thorax without compression deformity. Impression: 1. Right middle lobe and retrocardiac left lower lobe patchy infiltrates or atelectasis. No effusion, cardiomegaly or edema. Electronically Signed by Demond Franco MD 07/08/2019 07:00 P
--- NOTE | 2019-07-09 08:20 | ECGEPIP ---
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
== END 2019-07-07 22:36 | disposition home or self-care (01) ==
LOC: M ED 19:49
DX: J18.0 Bronchopneumonia, unspecified organism (principal); R00.0 Tachycardia, unspecified; I25.2 Old myocardial infarction; E11.9 Type 2 diabetes mellitus without complications; I10 Essential (primary) hypertension; E07.9 Disorder of thyroid, unspecified; I51.9 Heart disease, unspecified; Z79.82 Long term (current) use of aspirin; Z79.4 Long term (current) use of insulin; Z79.899 Other long term (current) drug therapy; Z88.0 Allergy status to penicillin; Z91.018 Allergy to other foods

== ENCOUNTER → 2019-07-24 | Outpatient (CLI) | payer MEDICARE ==
[~2019-07-24] MED LIST changes: +JANU100T; +LEVA1TAB2 PO; -OMEP40CA2 PO; +OMEP40CA97 PO
--- NOTE | 2019-07-24 14:38 | REP ---
REASON: Carotid stenosis. 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 No hemodynamically significant carotid arterial stenosis was noted on that exam. See adjacent to and along the dunham of the right carotid artery in the same location as seen on the prior exam there is a mixed echo structure which today measures 2.5 x 1.5 x 4.0 cm, previously 4.4 x 2.2 x 2.0 cm. Once again, there is calcified and noncalcified atheromatous plaque seen bilaterally. RIGHT LEFT CCA Systolic 91.6 cm/s 105.0 cm/s CCA Diastolic 16.5 cm/s 19.2 cm/s ICA Systolic 129.0 cm/s 121.0 cm/s ICA Diastolic 30.1 cm/s 21.7 cm/s ICA/CCA Ratio 1.68 1.15 Analysis of the spectral waveform shows no evidence of significant spectral broadening. There is antegrade flow seen in both vertebral arteries. IMPRESSION: 1. 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 2. According to the NASCET consensus criteria once again, there is less than 50% stenosis of the internal carotid artery bilaterally. This is secondary to both soft and calcified atheromatous plaque formation. Electronically Signed by Solomon Silva DO 07/24/2019 03:48 P
== END ==
LOC: M RAD 12:14
PROVIDERS: ATTEND Physician Assistant
DX: I65.23 Occlusion and stenosis of bilateral carotid arteries (principal)

== ENCOUNTER → 2019-12-17 | Outpatient (REF) | payer MEDICARE ==
[2019-12-17 11:20] LABS: BASO % 0.3 % (0.0-1.0); EOS # 0.1 10^3/uL (0.0-0.5); EOS % 0.9 % (0.0-3.0); HEMATOCRIT 32.7 % (36.0-47.0); HEMOGLOBIN 9.5 g/dl (12.0-15.5); LYMPH # 1.1 10^3/uL (1.5-5.0); MEAN CORPUSCULAR HEMOGLOBIN 26.2 pg (27.0-33.0); MEAN CORPUSCULAR HGB CONC 29.1 g/dl (32.0-36.5); MEAN CORPUSCULAR VOLUME 90.1 fl (80.0-96.0); MONO # 0.5 10^3/uL (0.0-0.8); MONO % 6.2 % (0.0-5.0); NEUTROPHILS # 5.9 10^3/uL (1.5-8.5); NEUTROPHILS % 77.8 % (36.0-66.0); PLATELET COUNT, AUTOMATED 223 10^3/uL (150-450); RED BLOOD COUNT 3.63 10^6/uL (4.00-5.40); WHITE BLOOD COUNT 7.6 10^3/uL (4.0-10.0)
[2019-12-17 12:44] LABS: ALBUMIN 3.8 GM/DL (3.2-5.2); ALT/SGPT 44 U/L (12-78); BILIRUBIN,TOTAL 0.7 MG/DL (0.2-1.0); BLOOD UREA NITROGEN 11 MG/DL (7-18); CALCIUM LEVEL 8.9 MG/DL (8.8-10.2); CARBON DIOXIDE LEVEL 24 MEQ/L (21-32); CHLORIDE LEVEL 103 MEQ/L (98-107); CHOLESTEROL LEVEL 110 MG/DL (<200); CHOLESTEROL RISK RATIO 3.142 (<5); CREATININE FOR GFR 0.85 MG/DL (0.55-1.30); GLOMERULAR FILTRATION RATE > 60.0 (>32); GLUCOSE, FASTING 318 MG/DL (70-100); HDL CHOLESTEROL 35 MG/DL (>40); LDL CHOLESTEROL 47 MG/DL (<100); NON-HDL-C 75 MG/DL; POTASSIUM SERUM 4.5 MEQ/L (3.5-5.1); SODIUM LEVEL 136 MEQ/L (136-145); TOTAL 25(OH) VITAMIN D 24.6 NG/ML (30.0-100.0); TOTAL PROTEIN 7.5 GM/DL (6.4-8.2); TRIGLYCERIDES LEVEL 140 MG/DL (<150)
== END ==
LOC: M LAB REF 10:58
PROVIDERS: ATTEND Nurse Practitioner Family
DX: E78.5 Hyperlipidemia, unspecified (principal); Z13.9 Encounter for screening, unspecified; I10 Essential (primary) hypertension